=== PATIENT | female | born 2005 | race Caucasian/White ===

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

== ENCOUNTER 2025-04-14 21:45 | Emergency (ER) | payer MEDICAID, SELFPAY ==
[2025-04-14 21:46] VITALS: BP 140/71; PULSE 119; RESP 18; TEMP 37.3; O2SAT 97
--- OUTSIDE RECORDS SUMMARY | 2025-04-14 21:47 | XMS_ITS | Data Portability ---
Author Organization [facility] Address [address] [place] [address] Care Team Providers Care [employer] Worker Name Role Phone ISLAS OLIVE Primary Care Provider [phone] Assessment Encounter Date Assessment Date Assessment LastModified by Organization Details LastModified Time 02/27/2024 02/27/2024 see ob episode [email or web address] Not available 02/27/2024 12:11:50 Plan of Treatment Reminders Order Date Submit Date Provider Last Modified By Organization Details Last Modified Time Details Appointments None recorde d. Lab culture , urine 2023 024 [facility], [address] [place] [address], [place], [address], 4 07:16:38 chlamyd ia trachom atis + neisser ia gonorrh oeae + trichom onas vaginal is DNA panel, CAROL+pro be, unspeci fied specime n 2023 024 JENNIE [facility], [address] [place] [address] 2, [place], [address], 4 07:16:24 mycopla sma genital ium DNA, QL, CAROL+pro be, urine 2023 024 JENNIE [facility], [address] [place] [address], [facility] 2, [place], [address], 4 16:12:39 urinaly sis, dipstic k 2023 024 [email or web address] In-Office Order, Internal Use Only DO Not Attach Compendium DO Not Attach Compendium, Do Not Delete/merge, [id number] 4 17:05:10 pregnan cy test, urine 2023 024 [facility] In-Office Order, Internal Use Only DO Not Attach Compendium DO Not Attach Compendium, Do Not Delete/merge, [id number] 4 09:34:19 prenata l panel 2023 024 JENNIE [facility], [address], [place], [address], 4 16:12:30 drug screen, urine 2023 024 JENNIE [facility], [address], [place], [address], 4 16:12:35 hemoglo bin S (hbs), presenc e, blood 2023 024 JENNIE [facility], [address], [place], [address], 4 16:12:36 varicel la zoster virus IgG Ab, QN, IA, serum 2023 024 JENNIE [facility], [address], [place], [address], 4 16:12:38 trichom onas vaginal is RNA 2023 024 JENNIE [facility], [address], [place], [address], 4 16:12:34 hsv (1+2) igg, serum 2023 024 JENNIE [facility], [address], [place], [address], 4 16:12:31 mycopla sma genital ium DNA, QL, CAROL+pro be, urine 2023 024 JENNIE [facility], [address] [facility], [facility] 2, [place], [address], 4 16:12:33 urinaly sis, dipstic k 2023 024 [facility] Order, Internal Use Only DO Not Attach Compendium DO Not Attach Compendium, Do Not Delete/merge, [id number] 4 09:34:19 iron + total iron-bi nding capacit y (TIBC), serum 2022 023 JENNIE [facility], [address] [facility] 2, [place], [address], 3 08:27:26 vitamin B12 + folate, serum or blood 2022 023 JENNIE [facility], [address] [place] [address] 2, [place], [address], 3 08:27:25 ferriti n, serum or plasma 2022 023 JENNIE [facility], [address] [facility], [facility] 2, [place], [address], 3 08:27:27 PT/PTT, plasma 2022 023 JENNIE [facility], [address] [facility] 2, [place], [address], 3 08:27:27 vitamin D, 25-hydr oxy, total, serum 2022 023 JENNIE [facility], [address] [place] [address] 2, [place], [address], 3 08:27:28 TSH, ultra-s ensitiv e, serum 2022 023 JENNIE [facility], [address], [place], [address], 3 08:27:24 CMP, serum or plasma 2022 023 JENNIE [facility], [address], [place], [address], 3 03:08:12 lipid panel, serum 2022 023 JENNIE [facility], [address], [place], [address], 3 03:08:11 CBC 2022 023 JENNIE [facility], [address], [place], [address], 3 03:08:12 Referral None recorde d. Procedures None recorde d. Surgeries None recorde d. Imaging US, obstetr ic, materna l evaluat ion + anatomy 2023 024 [email or web address] [facility] Lab, [address] [place], [address], 4 12:32:55 US, obstetr ic, 2nd trimest er 2023 024 JENNIE [facility] Lab, [address] [place], [address], 4 12:29:58 XR, knee, 3 view 2022 023 JENNIE [facility] 1 [facility] [place], [address], 3 17:18:23 XR, knee, 3 view 2022 023 [facility] ([facility] Lab, [address] [place], [address], 3 13:47:09 Medication Orders ondanse berry 4 mg disinte grating tablet 2023 024 JENNIE [facility] [id number], [address], 4 10:37:08 albuter ol sulfate HFA 90 mcg/act uation aerosol inhaler 2022 023 [email or web address] [facility] [address], [address], 4 09:16:49 Sprinte c (28) 0.25 mg-0.03 5 mg tablet 2021 022 [facility] [id number], [address], 4 09:16:34 Patient TargetsNo targets recorded. Patient Instructions Encounter Date Encounter Id Patient Instructions Last Modified By Organization Details Last Modified Time 01/19/2023 [id number] Learning About How to Make Healthy Changes in Your Child's Diet avallala Not available 01/19/2023 12:25:32 Considering More Physical Activity for Your Child avallala Not available 01/19/2023 12:25:32 08/14/2023 [id number] influenza (flu) vaccine: care instructions Not available [...] with provider Not available 08/14/2023 10:45:36 02/27/2024 [id number] learning about mood disorders [email or web address] Not available 02/27/2024 12:11:50 04/02/2024 [id number] extreme nausea and vomiting in : care instructions [email or web address] Not available 04/03/2024 10:37:03 Reason for Referral None Reported. Results Created Date Observation Date Name Description Value Unit Range Abnormal Flag Note LastModifiedBy Organization Detail LastModifiedTime 08/14/2008/14/2023 LIPID PANEL cholesterol, total 273 mg/dL 100-16 9 above high normal Not Available [facility] Department [address] [place], [address], 08/15/2023 03:08:11 08/14/2008/14/2023 LIPID PANEL triglyceride s 99 mg/dL 0-89 above high normal Not Available [facility] Department [address] [place], [address], 08/15/2023 03:08:11 08/14/2008/14/2023 LIPID PANEL HDL cholesterol 83 mg/dL 40-999 Not Available [facility] Department [address] [place], [address], 08/15/2023 03:08:11 08/14/2008/14/2023 LIPID PANEL VLDL cholesterol don 20 mg/dL 5-40 Not Available [facility] Department [address] [place], [address], 08/15/2023 03:08:11 08/14/2008/14/2023 LIPID PANEL LDL chol calc ([facility]) 185 mg/dL 0-109 above high normal Not Available [facility] Department [address] [place], [address], 08/15/2023 03:08:11 08/14/2008/14/2023 COMP. METAB OLIC PANEL (14) glucose 79 mg/dL 70-99 Not Available [facility] Department [address] [place], [address], 08/15/2023 03:08:12 08/14/20 23 08/14/2023 COMP. METAB OLIC PANEL (14) BUN 11 mg/dL 6-20 Not Available [facility] Department [address] [place], [address], 08/15/2023 03:08:12 08/14/20 23 08/14/2023 COMP. METAB OLIC PANEL (14) creatinine 0.70 mg/dL 0.76-1 .27 below low normal Not Available [facility] Department [address] [place], [address], 08/15/2023 03:08:12 08/14/20 23 08/14/2023 COMP. METAB OLIC PANEL (14) eGFR 128 >=60 Units for eGFR value s are mL/mi n/1.7 3 The eGFR Calcu latio n has not been valid ated for patie nts under the age of 18. If test resul ts are displ ayed for a patie nt under the age of 18, disre samuel that value . Not Available [facility] Department [address] [place], [address], 08/15/2023 03:08:12 08/14/20 23 08/14/2023 COMP. METAB OLIC PANEL (14) BUN/creatini ne ratio 16 9-23 Not Available [facility] Department [address] [place], [address], 08/15/2023 03:08:12 08/14/20 23 08/14/2023 COMP. METAB OLIC PANEL (14) sodium 137 mmol/ L 134-14 4 Not Available [facility] Department [address] [place], [address], 08/15/2023 03:08:12 08/14/20 23 08/14/2023 COMP. METAB OLIC PANEL (14) potassium 4.6 mmol/ L 3.5-5. 2 Not Available [facility] Department [address] [place], [address], 08/15/2023 03:08:12 08/14/20 23 08/14/2023 COMP. METAB OLIC PANEL (14) chloride 101 mmol/ L 96-106 Not Available [facility] Department [address] [place], [address], 08/15/2023 03:08:12 08/14/20 23 08/14/2023 COMP. METAB OLIC PANEL (14) carbon dioxide, total 24 mmol/ L 20-29 Not Available [facility] Department [address] [place] [address], [address], 08/15/2023 03:08:12 08/14/20 23 08/14/2023 COMP. METAB OLIC PANEL (14) calcium 10.1 mg/dL 8.7-10 .2 Not Available [facility] Department [address] [place] [address], [address], 08/15/2023 03:08:12 08/14/20 23 08/14/2023 COMP. METAB OLIC PANEL (14) protein, total 7.6 g/dL 6.0-8. 5 Not Available [facility] Department [address] [place], [address], 08/15/2023 03:08:12 08/14/20 23 08/14/2023 COMP. METAB OLIC PANEL (14) albumin 4.4 g/dL 4.0-5. 0 Not Available [facility] Department [address] [place], [address], 08/15/2023 03:08:12 08/14/20 23 08/14/2023 COMP. METAB OLIC PANEL (14) globulin, total 3.2 g/dL 1.5-4. 5 Not Available [facility] Department [address] [place], [address], 08/15/2023 03:08:12 08/14/20 23 08/14/2023 COMP. METAB OLIC PANEL (14) A/G ratio 1.0 1.2-2. 2 below low normal Not Available [facility] Department [address] [place], [address], 08/15/2023 03:08:12 08/14/20 23 08/14/2023 COMP. METAB OLIC PANEL (14) bilirubin, total 0.2 mg/dL 0.0-1. 2 Not Available [facility] Department [address] [place], [address], 08/15/2023 03:08:12 08/14/20 23 08/14/2023 COMP. METAB OLIC PANEL (14) alkaline phosphatase 109 IU/L 42-106 above high normal Not Available [facility] Department [address] [place], [address], 08/15/2023 03:08:12 08/14/20 23 08/14/2023 COMP. METAB OLIC PANEL (14) AST (SGOT) 15 IU/L 0-40 Not Available [facility] Department [address] [place] [address], [address], 08/15/2023 03:08:12 08/14/2008/14/2023 COMP. METAB OLIC PANEL (14) ALT (SGPT) 10 IU/L 0-32 Not Available [facility] Department [address] [place] [address], [address], 08/15/2023 03:08:12 08/14/20 23 08/14/2023 CBC, NO DIFFE RENTI AL/PL ATELE T WBC 8.8 x10e3 /uL 3.4-10 .8 Not Available [facility] Department [address] [place], [address], 08/15/2023 03:08:12 08/14/20 23 08/14/2023 CBC, NO DIFFE RENTI AL/PL ATELE T RBC 4.73 x10e6 /uL 3.77-5 .28 Not Available [facility] Department [address] [place] [address], [address], 08/15/2023 03:08:12 08/14/20 23 08/14/2023 CBC, NO DIFFE RENTI AL/PL ATELE T hemoglobin 11.2 g/dL 11.1-1 5.9 Not Available [facility] Department [address] [place], [address], 08/15/2023 03:08:12 08/14/2008/14/2023 CBC, NO DIFFE RENTI AL/PL ATELE T hematocrit 38.4 % 34.0-4 6.6 Not Available [facility] Department [address] [place], [address], 08/15/2023 03:08:12 08/14/2008/14/2023 CBC, NO DIFFE RENTI AL/PL ATELE T MCV 81 fL 79-97 Not Available [facility] Department [address] [place], [address], 08/15/2023 03:08:12 08/14/2008/14/2023 CBC, NO DIFFE RENTI AL/PL ATELE T MCH 23.7 pg 26.6-3 3.0 below low normal Not Available [facility] Department [address] [place], [address], 08/15/2023 03:08:12 08/14/2008/14/2023 CBC, NO DIFFE RENTI AL/PL ATELE T MCHC 29.2 g/dL 31.5-3 5.7 below low normal Not Available [facility] Department [address] [place], [address], 08/15/2023 03:08:12 08/14/20 23 08/14/2023 CBC, NO DIFFE RENTI AL/PL ATELE T RDW 15.7 % 11.5-1 4.5 above high normal Not Available [facility] Department [address] [place], [address], 08/15/2023 03:08:12 08/14/20 23 08/14/2023 CBC, NO DIFFE RENTI AL/PL ATELE T NRBC 0 % 0-0 Not Available [facility] Department [address], [place], [address], 08/15/2023 03:08:12 08/14/20 23 08/15/2023 TSH RFX ON ABNOR MAL TO FREE T4 TSH 1.290 uIU/m L 0.450- 4.500 Not Available [facility] ([facility]) [address] [place], [address], 08/15/2023 08:27:24 08/14/20 23 08/15/2023 VITAM IN B12 AND FOLAT E vitamin B12 293 pg/mL 232-12 45 Not Available [facility] ([facility]) [address] [place], [address], 08/15/2023 08:27:25 08/14/20 23 08/15/2023 VITAM IN B12 AND FOLAT E folate (folic acid), serum 3.9 NG/mL >3.0 A serum folat e eduardo ntrat ion of less than 3.1 ng/mL is consi dered to repre sent clini don defic iency . Not Available [facility] ([facility]) [address] [place], [address], 08/15/2023 08:27:25 08/14/20 23 08/15/2023 IRON AND TIBC iron bind.cap.(TI BC) 511 ug/dL 250-45 0 above high normal Not Available [facility] ([facility]) [address] [place], [address], 08/15/2023 08:27:26 08/14/20 23 08/15/2023 IRON AND TIBC UIBC 466 ug/dL 131-42 5 above high normal Not Available [facility] ([facility]) [address] [place], [address], 08/15/2023 08:27:26 08/14/20 23 08/15/2023 IRON AND TIBC iron 45 ug/dL 27-159 Not Available [facility] ([facility]) [address] [place], [address], 08/15/2023 08:27:26 08/14/20 23 08/15/2023 IRON AND TIBC iron saturation 9 % 15-55 alert low Not Available [facility] ([facility]) [address] [place], [address], 08/15/2023 08:27:26 08/14/20 23 08/15/2023 DENNIS TIN ferritin 8 NG/mL 15-77 below low normal Not Available [facility] ([facility]) [address] [place], [address], 08/15/2023 08:27:27 08/14/20 23 08/15/2023 PT AND [...] range 2.5 - 3.5 Not Available [facility] ([facility]) [address] [facility], [place], [address], 08/15/2023 08:27:27 08/14/20 23 08/15/2023 PT AND PTT prothrombin time 10.3 sec 9.1-12 .0 Not Available [facility] ([facility]) [address] [place], [address], 08/15/2023 08:27:27 08/14/20 23 08/15/2023 PT AND PTT APTT 29 sec 24-33 This test has not been valid ated for monit oring unfra ction ated hepar in thera py. aPTT- based thera peuti c range s for unfra ction ated hepar in thera py have not been estab maria eugenia marie. For gener al guide lines on Hepar in monit oring , refer to the [facility] [employer] tory of Servi reyes. Not Available [facility] ([facility]) [address], [place], [address], 08/15/2023 08:27:27 08/14/20 23 08/15/2023 VITAM IN [...] Medic ine). 2009. Dieta ry refer ence intyahir es for calci um and D. Josi francis [place]: [facility] . 2. Jacinda brooke [place], Marge ey [place], [place] off-F errar i [place], et al. Evalu ation , treat ment, and preve ntion of vitam in D defic iency : an Endoc rine Socie ty clini don pract ice guide line. JCEM. 2010; 96(7) :1911 -30. Not Available [facility] ([facility]) [address], [place], [address], 08/15/2023 08:27:28 02/27/20 24 02/28/2024 INTER PRETA TION: interpretati on: Commen t Not infec delia with HCV unles s early or acute infec tion is suspe cted (whic h may be delay ed in an immun ocomp romis ed indiv idual ), or other evide nce exist s to indic ate HCV infec tion. Not Available [facility] ([facility]) [address] [facility], [place], [address], 03/05/2024 16:12:29 02/27/20 24 02/28/2024 PREGN JO, INITI AL SCREE N HBsAg screen NEGATI VE negati ve Not Available [facility] ([facility]) [address] [facility], [place], [address], 03/05/2024 16:12:30 02/27/20 24 02/28/2024 PREGN JO, INITI AL SCREE N HCV Ab NON REACTI VE nonrea ctive Not Available [facility] ([facility]) [address] [facility], [place], [address], 03/05/2024 16:12:30 02/27/20 24 02/28/2024 PREGN JO, INITI AL SCREE N RPR NON REACTI VE nonrea ctive Not Available [facility] ([facility]) [address] [facility], [place], [address], 03/05/2024 16:12:30 02/27/20 24 02/28/2024 PREGN JO, INITI AL SCREE N rubella antibodies, IgG <0.90 index immune >0.99 below low normal Non-i mmune <0.90 Equiv ocal 0.90 - 0.99 Immun e >0.99 Not Available [facility] ([facility]) [address] [facility], [place], [address], 03/05/2024 16:12:30 02/27/20 24 02/28/2024 PREGN JO, INITI AL SCREE N ABO grouping O Not Available [facility] ([facility]) [address] [facility], [place], [address], 03/05/2024 16:12:30 02/27/20 24 02/28/2024 PREGN JO, INITI AL SCREE N Rh factor NEGATI VE Pleas e note: Prior recor ds for this patie nt's ABO / Rh type are not avail able for addit ional verif icati on. Not Available [facility] ([facility]) [address] [facility], [place], [address], 03/05/2024 16:12:30 02/27/20 24 02/28/2024 PREGN JO, INITI AL SCREE N antibody screen NEGATI VE negati ve Not Available [facility] ([facility]) [address] [facility], [place], [address], 03/05/2024 16:12:30 02/27/20 24 02/28/2024 PREGN JO, INITI AL SCREE N HIV Ab/P24 Ag screen NON REACTI VE nonrea ctive HIV Negat robert HIV-1 /HIV- 2 antib odies and HIV-1 p24 antig en were NOT detec delia. There is no labor atory evide nce of HIV infec tion. Not Available [facility] ([facility]) [address] [facility], [place], [address], 03/05/2024 16:12:30 02/27/20 24 02/28/2024 PREGN JO, INITI AL SCREE N WBC 8.4 x10e3 /uL 3.4-10 .8 Not Available [facility] ([facility]) [address] [facility], [place], [address], 03/05/2024 16:12:30 02/27/20 24 02/28/2024 PREGN JO, INITI AL SCREE N RBC 4.29 x10e6 /uL 3.77-5 .28 Not Available [facility] ([facility]) [address] [place], [address], 03/05/2024 16:12:30 02/27/20 24 02/28/2024 PREGN JO, INITI AL SCREE N hemoglobin 10.3 g/dL 11.1-1 5.9 below low normal Not Available [facility] ([facility]) [address] [place], [address], 03/05/2024 16:12:30 02/27/20 24 02/28/2024 PREGN JO, INITI AL SCREE N hematocrit 32.6 % 34.0-4 6.6 below low normal Not Available [facility] ([facility]) [address] [place], [address], 03/05/2024 16:12:30 02/27/20 24 02/28/2024 PREGN JO, INITI AL SCREE N MCV 76 fL 79-97 below low normal Not Available [facility] ([facility]) [address] [place], [address], 03/05/2024 16:12:30 02/27/20 24 02/28/2024 PREGN OJ, INITI AL SCREE N MCH 24.0 pg 26.6-3 3.0 below low normal Not Available [facility] ([facility]) [address] [place], [address], 03/05/2024 16:12:30 02/27/20 24 02/28/2024 PREGN JO, INITI AL SCREE N MCHC 31.6 g/dL 31.5-3 5.7 Not Available [facility] ([facility]) [address] [place], [address], 03/05/2024 16:12:30 02/27/20 24 02/28/2024 PREGN JO, INITI AL SCREE N RDW 15.7 % 11.7-1 5.4 above high normal Not Available [facility] ([facility]) [address] [place], [address], 03/05/2024 16:12:30 02/27/20 24 02/28/2024 PREGN JO, INITI AL SCREE N platelets 357 x10e3 /uL 150-45 0 Not Available [facility] ([facility]) [address] [facility] [place], [address], 03/05/2024 16:12:30 02/27/20 24 02/28/2024 PREGN JO, INITI AL SCREE N neutrophils 67 % notest ab. Not Available [facility] ([facility]) [address] [facility], [place], [address], 03/05/2024 16:12:30 02/27/20 24 02/28/2024 PREGN JO, INITI AL SCREE N lymphs 22 % notest ab. Not Available [facility] ([facility]) [address] [facility], [place], [address], 03/05/2024 16:12:30 02/27/20 24 02/28/2024 PREGN JO, INITI AL SCREE N monocytes 10 % notest ab. Not Available [facility] ([facility]) [address] [facility], [place], [address], 03/05/2024 16:12:30 02/27/20 24 02/28/2024 PREGN JO, INITI AL SCREE N eos 1 % notest ab. Not Available [facility] ([facility]) [address] [facility], [place], [address], 03/05/2024 16:12:30 02/27/20 24 02/28/2024 PREGN JO, INITI AL SCREE N basos 0 % notest ab. Not Available [facility] ([facility]) [address] [facility], [place], [address], 03/05/2024 16:12:30 02/27/20 24 02/28/2024 PREGN JO, INITI AL SCREE N neutrophils (absolute) 5.6 x10e3 /uL 1.4-7. 0 Not Available [facility] ([facility]) [address] [facility], [place], [address], 03/05/2024 16:12:30 02/27/20 24 02/28/2024 PREGN JO, INITI AL SCREE N lymphs (absolute) 1.9 x10e3 /uL 0.7-3. 1 Not Available [facility] ([facility]) [address] [place], [address], 03/05/2024 16:12:30 02/27/20 24 02/28/2024 PREGN JO, INITI AL SCREE N monocytes(ab solute) 0.8 x10e3 /uL 0.1-0. 9 Not Available [facility] ([facility]) [address] [facility], [place], [address], 03/05/2024 16:12:30 02/27/20 24 02/28/2024 PREGN JO, INITI AL SCREE N eos (absolute) 0.1 x10e3 /uL 0.0-0. 4 Not Available [facility] ([facility]) [address] [place], [address], 03/05/2024 16:12:30 02/27/20 24 02/28/2024 PREGN JO, INITI AL SCREE N baso (absolute) 0.0 x10e3 /uL 0.0-0. 2 Not Available [facility] ([facility]) [address] [facility], [place], [address], 03/05/2024 16:12:30 02/27/20 24 02/28/2024 PREGN JO, INITI AL SCREE N immature granulocytes 0 % notest ab. Not Available [facility] ([facility]) [address] [place], [address], 03/05/2024 16:12:30 02/27/20 24 02/28/2024 PREGN JO, INITI AL SCREE N immature grans (abs) 0.0 x10e3 /uL 0.0-0. 1 Not Available [facility] ([facility]) [address] [place], [address], 03/05/2024 16:12:30 02/27/20 24 02/28/2024 PREGN JO, INITI AL SCREE N specific gravity 1.020 1.005- 1.030 Not Available [facility] ([facility]) [address] [place], [address], 03/05/2024 16:12:30 02/27/20 24 02/28/2024 PREGN JO, INITI AL SCREE N pH 5.5 5.0-7. 5 Not Available [facility] ([facility]) [address] [place], [address], 03/05/2024 16:12:30 02/27/20 24 02/28/2024 PREGN JO, INITI AL SCREE N urine-color YELLOW yellow Not Available [facility] ([facility]) [address] [place], [address], 03/05/2024 16:12:30 02/27/20 24 02/28/2024 PREGN JO, INITI AL SCREE N appearance CLOUDY clear abnormal Not Available [facility] ([facility]) [address] [place], [address], 03/05/2024 16:12:30 02/27/20 24 02/28/2024 PREGN JO, INITI AL SCREE N WBC esterase 3+ negati ve abnormal Not Available [facility] ([facility]) [address] [place], [address], 03/05/2024 16:12:30 02/27/20 24 02/28/2024 PREGN JO, INITI AL SCREE N protein NEGATI VE negati ve/tra ce Not Available [facility] ([facility]) [address] [place], [address], 03/05/2024 16:12:30 02/27/20 24 02/28/2024 PREGN JO, INITI AL SCREE N glucose NEGATI VE negati ve Not Available [facility] ([facility]) [address] [place], [address], 03/05/2024 16:12:30 02/27/20 24 02/28/2024 PREGN JO, INITI AL SCREE N ketones NEGATI VE negati ve Not Available [facility] ([facility]) [address] [place], [address], 03/05/2024 16:12:30 02/27/20 24 02/28/2024 PREGN JO, INITI AL SCREE N occult blood TRACE negati ve abnormal Not Available [facility] ([facility]) [address] [place], [address], 03/05/2024 16:12:30 02/27/20 24 02/28/2024 PREGN JO, INITI AL SCREE N bilirubin NEGATI VE negati ve Not Available [facility] ([facility]) [address] [place], [address], 03/05/2024 16:12:30 02/27/20 24 02/28/2024 PREGN JO, INITI AL SCREE N urobilinogen ,semi-qn 0.2 mg/dL 0.2-1. 0 Not Available [facility] ([facility]) [address] [place], [address], 03/05/2024 16:12:30 02/27/20 24 02/28/2024 PREGN JO, INITI AL SCREE N nitrite, urine NEGATI VE negati ve Not Available [facility] ([facility]) [address] [place], [address], 03/05/2024 16:12:30 02/27/20 24 02/28/2024 PREGN JO, INITI AL SCREE N microscopic examination SEE BELOW: Micro scopi c was indic ated and was perfo rmed. Not Available [facility] ([facility]) [address] [place], [address], 03/05/2024 16:12:30 02/27/20 24 02/29/2024 PREGN JO, INITI AL SCREE N urine culture,pren atal, w/gbs FINAL REPORT Not Available [facility] ([facility]) [address] [facility], [place], [address], 03/05/2024 16:12:30 02/27/20 24 03/05/2024 PREGN JO, INITI AL SCREE N chlamydia trachomatis, CAROL POSITI VE negati ve abnormal Not Available [facility] ([facility]) [address] [facility], [place], [address], 03/05/2024 16:12:30 02/27/20 24 03/05/2024 PREGN JO, INITI AL SCREE N neisseria gonorrhoeae, CAROL NEGATI VE negati ve Not Available [facility] ([facility]) [address] [facility], [place], [address], 03/05/2024 16:12:30 02/27/20 24 02/28/2024 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 Not Available [facility] ([facility]) [address] [facility], [place], [address], 03/05/2024 16:12:31 02/27/20 24 02/28/2024 HSV 1 [...] beny corre lated . Not Available [facility] ([facility]) [address] [place], [address], 03/05/2024 16:12:31 02/27/20 24 03/05/2024 M GENIT ALIUM CAROL, URINE mycoplasma genitalium CAROL POSITI VE negati ve abnormal Not Available [facility] ([facility]) [address] [place], [address], 03/05/2024 16:12:32 02/27/20 24 03/03/2024 TRICH VAG BY CAROL trich vag by CAROL NEGATI VE negati ve Not Available [facility] ([facility]) [address] [place], [address], 03/05/2024 16:12:33 02/27/20 24 02/28/2024 MICRO SCOPI C EXAMI NATIO N WBC 11-30 /hpf 0-5 abnormal Not Available [facility] ([facility]) [address] [place], [address], 03/05/2024 16:12:35 02/27/20 24 02/28/2024 MICRO SCOPI C EXAMI NATIO N RBC None seen /hpf 0-2 Not Available [facility] ([facility]) [address] [facility], [place], [address], 03/05/2024 16:12:35 02/27/20 24 02/28/2024 MICRO SCOPI C EXAMI NATIO N epithelial cells (non renal) >10 /hpf 0-10 abnormal Not Available [facility] ([facility]) [address] [facility], [place], [address], 03/05/2024 16:12:35 02/27/20 24 02/28/2024 MICRO SCOPI C EXAMI NATIO N casts None seen /lpf nonese en Not Available [facility] ([facility]) [address] [facility], [place], [address], 03/05/2024 16:12:35 02/27/20 24 02/28/2024 MICRO SCOPI C EXAMI NATIO N bacteria Modera te nonese en/few abnormal Not Available [facility] ([facility]) [address] [facility], [place], [address], 03/05/2024 16:12:35 02/27/20 24 02/29/2024 [id number] 9 10 DRUG- BUND amphetamines , urine NEGATI VE NG/mL cutoff =1000 Amphe tamin e test inclu mary jane Amphe tamin e and Metha mphet amine . Not Available [facility] ([facility]) [address] [facility], [place], [address], 03/05/2024 16:12:35 02/27/20 24 02/29/2024 48295 9 10 DRUG- BUND barbiturates NEGATI VE NG/mL cutoff =200 Not Available [facility] ([facility]) [address] [facility], [place], [address], 03/05/2024 16:12:35 02/27/20 24 02/29/2024 64009 9 10 DRUG- BUND benzodiazepi mathew NEGATI VE NG/mL cutoff =200 Not Available [facility] ([facility]) [address] [place], [address], 03/05/2024 16:12:35 02/27/20 24 02/29/2024 35400 9 10 DRUG- BUND cannabinoid NEGATI VE NG/mL cutoff =50 Not Available [facility] ([facility]) [address] [place], [address], 03/05/2024 16:12:35 02/27/20 24 02/29/2024 10114 9 10 DRUG- BUND cocaine (metab.) NEGATI VE NG/mL cutoff =300 Not Available [facility] ([facility]) [address] [facility], [place], [address], 03/05/2024 16:12:35 02/27/20 24 02/29/2024 [id number] 9 10 DRUG- BUND methaqualone NEGATI VE NG/mL cutoff =300 Not Available [facility] ([facility]) [address] [place], [address], 03/05/2024 16:12:35 02/27/20 24 02/29/2024 55616 9 10 DRUG- BUND opiates NEGATI VE NG/mL cutoff =2000 Opiat e test inclu mary jane Codei ne and Morph ine only. Not Available [facility] ([facility]) [address] [place], [address], 03/05/2024 16:12:35 02/27/20 24 02/29/2024 09302 9 10 DRUG- BUND phencyclidin e NEGATI VE NG/mL cutoff =25 Not Available [facility] ([facility]) [address] [place], [address], 03/05/2024 16:12:35 02/27/20 24 02/29/2024 48747 9 10 DRUG- BUND methadone screen, urine NEGATI VE NG/mL cutoff =300 Not Available [facility] ([facility]) [address] [place], [address], 03/05/2024 16:12:35 02/27/20 24 02/29/2024 57446 9 10 DRUG- BUND propoxyphene , urine NEGATI VE NG/mL cutoff =300 Not Available [facility] ([facility]) [address] [place], [address], 03/05/2024 16:12:35 02/27/20 24 02/28/2024 HB SOLU + RFLX FRAC hemoglobin (HGB) solubility NEGATI VE negati ve Not Available [facility] ([facility]) [address] [facility], [place], [address], 03/05/2024 16:12:36 02/27/20 24 02/29/2024 RESUL T result 1 Commen t Mixed uroge nital mer Great er than 100,0 00 colon y formi ng units per mL Not Available [facility] ([facility]) [address] [facility], [place], [address], 03/05/2024 16:12:37 02/27/20 24 02/28/2024 VARIC GLORY- [...] stage of disea se. Not Available [facility] ([facility]) [address] [facility], [place], [address], 03/05/2024 16:12:38 02/27/20 24 02/27/2024 urina lysis , dipst ick Leukocytes Large Not Available In-Offi ce Order Internal Use Only DO Not Attach Compendium DO Not Attach Compendium, Do Not Delete/merge, Critical [facility] hospital 02/27/2024 09:19:07 02/27/20 24 02/27/2024 urina lysis , dipst ick Nitrite negati ve Not Available In-Office Order Internal Use Only DO Not Attach Compendium DO Not Attach Compendium, Do Not Delete/merge, Critical [facility] hospital 02/27/2024 09:19:07 02/27/20 24 02/27/2024 urina lysis , dipst ick Urobilinogen .2 Not Available In-Of fice Order Internal Use Only DO Not Attach Compendium DO Not Attach Compendium, Do Not Delete/merge, Critical [facility] hospital 02/27/2024 09:19:07 02/27/20 24 02/27/2024 urina lysis , dipst ick Protein Negati ve Not Available In-Office Order Internal Use Only DO Not Attach Compendium DO Not Attach Compendium, Do Not Delete/merge, Critical [facility] hospital 02/27/2024 09:19:07 02/27/20 24 02/27/2024 urina lysis , dipst ick pH 5.5 Not Available In-Office Order Internal Use Only DO Not Attach Compendium DO Not Attach Compendium, Do Not Delete/merge, Critical [facility] hospital 02/27/2024 09:19:07 02/27/20 24 02/27/2024 urina lysis , dipst ick Blood Non-He molyze d: Trace Not Available In-Office Order Internal Use Only DO Not Attach Compendium DO Not Attach Compendium, Do Not Delete/merge, Critical [facility] hospital 02/27/2024 09:19:07 02/27/20 24 02/27/2024 urina lysis , dipst ick Specific Spencer 1.025 Not Available In-Off ice Order Internal Use Only DO Not Attach Compendium DO Not Attach Compendium, Do Not Delete/merge, [id number] 02/27/2024 09:19:07 02/27/20 24 02/27/2024 urina lysis , dipst ick Ketone Negati ve Not Available In-Office Order Internal Use Only DO Not Attach Compendium DO Not Attach Compendium, Do Not Delete/merge, Critical [facility] hospital 02/27/2024 09:19:07 02/27/20 24 02/27/2024 urina lysis , dipst ick Bilirubin Negati ve Not Available In-Office Order Internal Use Only DO Not Attach Compendium DO Not Attach Compendium, Do Not Delete/merge, Critical [facility] hospital 02/27/2024 09:19:07 02/27/20 24 02/27/2024 urina lysis , dipst ick Glucose Negati ve Not Available In-Office Order Internal Use Only DO Not Attach Compendium DO Not Attach Compendium, Do Not Delete/merge, Critical [facility] hospital 02/27/2024 09:19:07 02/27/20 24 02/27/2024 urina lysis , dipst ick Appearance Clear Not Available In-Offi ce Order Internal Use Only DO Not Attach Compendium DO Not Attach Compendium, Do Not Delete/merge, Critical [facility] hospital 02/27/2024 09:19:07 02/27/20 24 02/27/2024 urina lysis , dipst ick Color Yellow Not Available In-Office Order Internal Use Only DO Not Attach Compendium DO Not Attach Compendium, Do Not Delete/merge, Critical [facility] hospital 02/27/2024 09:19:07 02/27/20 24 02/27/2024 pregn jo test, urine HCG positi ve Not Available In-Office Order Internal Use Only DO Not Attach Compendium DO Not Attach Compendium, Do Not Delete/merge, Critical access hospital 02/27/2024 09:18:25 04/02/20 24 04/04/2024 CT, NG, TRICH VAG BY CAROL chlamydia by CAROL NEGATI VE negati ve Not Available [facility] ([facility]) [address] [place], [address], 04/04/2024 07:16:24 04/02/20 24 04/04/2024 CT, NG, TRICH VAG BY CAROL gonococcus by CAROL NEGATI VE negati ve Not Available [facility] ([facility]) [address] [place], [address], 04/04/2024 07:16:24 04/02/20 24 04/04/2024 CT, NG, TRICH VAG BY CAROL trich vag by CAROL NEGATI VE negati ve Not Available [facility] ([facility]) [address] [facility], [place], [address], 04/04/2024 07:16:24 04/02/20 24 04/04/2024 URINE CULTU RE, ROUTI NE urine culture, routine FINAL REPORT Not Available [facility] ([facility]) [address] [facility], [place], [address], 04/04/2024 07:16:38 04/02/20 24 04/04/2024 URINE CULTU RE, ROUTI NE result 1 COMMEN T Mixed uroge nital mer 25,00 0-50, 000 colon y formi ng units per mL Not Available [facility] ([facility]) [address] [facility], [place], [address], 04/04/2024 07:16:38 04/02/20 24 04/05/2024 M GENIT ALIUM CAROL, URINE mycoplasma genitalium CAROL POSITI VE negati ve abnormal Not Available [facility] ([facility]) [address] [facility], [place], [address], 04/05/2024 16:12:38 04/02/20 24 04/02/2024 urina lysis , dipst ick Leukocytes Modera te Not Available In-Office Order Internal Use Only DO Not Attach Compendium DO Not Attach Compendium, Do Not Delete/merge, [id number] 04/01/2024 15:13:13 04/02/20 24 04/02/2024 urina lysis , dipst ick Nitrite negati ve Not Available In-Office Order Internal Use Only DO Not Attach Compendium DO Not Attach Compendium, Do Not Delete/merge, [id number] 04/01/2024 15:13:13 04/02/20 24 04/02/2024 urina lysis , dipst ick Urobilinogen .2 Not Available In-Of fice Order Internal Use Only DO Not Attach Compendium DO Not Attach Compendium, Do Not Delete/merge, [id number] 04/01/2024 15:13:13 04/02/20 24 04/02/2024 urina lysis , dipst ick Protein 30 Not Available In-Office Order Internal Use Only DO Not Attach Compendium DO Not Attach Compendium, Do Not Delete/merge, [id number] 04/01/2024 15:13:13 04/02/2004/02/2024 urina lysis , dipst ick pH 8.5 Not Available In-Office Order Internal Use Only DO Not Attach Compendium DO Not Attach Compendium, Do Not Delete/merge, Critical [facility] hospital 04/01/2024 15:13:13 04/02/20 24 04/02/2024 urina lysis , dipst ick Blood Negati ve Not Available In-Office Order Internal Use Only DO Not Attach Compendium DO Not Attach Compendium, Do Not Delete/merge, Critical access hospital 04/01/2024 15:13:13 04/02/20 24 04/02/2024 urina lysis , dipst ick Specific Spencer 1.015 Not Available In-Off ice Order Internal Use Only DO Not Attach Compendium DO Not Attach Compendium, Do Not Delete/merge, Critical [facility] hospital 04/01/2024 15:13:13 04/02/20 24 04/02/2024 urina lysis , dipst ick Ketone Negati ve Not Available In-Office Order Internal Use Only DO Not Attach Compendium DO Not Attach Compendium, Do Not Delete/merge, Critical [facility] hospital 04/01/2024 15:13:13 04/02/2004/02/2024 urina lysis , dipst ick Bilirubin Negati ve Not Available In-Office Order Internal Use Only DO Not Attach Compendium DO Not Attach Compendium, Do Not Delete/merge, Critical [facility] hospital 04/01/2024 15:13:13 04/02/20 24 04/02/2024 urina lysis , dipst ick Glucose Negati ve Not Available In-Office Order Internal Use Only DO Not Attach Compendium DO Not Attach Compendium, Do Not Delete/merge, Critical access hospital 04/01/2024 15:13:13 04/09/20 24 04/14/2024 MATER NIT21 PLUS CORE gestation SINGLE TON Not Available [facility] ([facility]) [address] [facility], [place], [address], 04/14/2024 07:08:18 04/09/20 24 04/14/2024 MATER NIT21 PLUS CORE fraction 7% Not Available [facility] ([facility]) [address] [place], [address], 04/14/2024 07:08:18 04/09/20 24 04/14/2024 MATER NIT21 PLUS CORE gestational age > or = 9W: YES Not Available [facility] ([facility]) [address] [facility], [place], [address], 04/14/2024 07:08:18 04/09/20 24 04/14/2024 MATER NIT21 PLUS CORE test result NEGATI VE Not Available [facility] ([facility]) [address] [facility], [place], [address], 04/14/2024 07:08:18 04/09/20 24 04/14/2024 MATER NIT21 PLUS CORE molder labels comments SARITA Dia speci men showe d an expec delia repre senta tion of chrom osome 21, 18 and 13 mater ial. Clini don corre latio n is viridiana ferrell. Not Available [facility] ([facility]) [address] [facility], [place], [address], 04/14/2024 07:08:18 04/09/20 24 04/14/2024 MATER NIT21 PLUS CORE approved by SARITA de luna MD, PhD, [facility] tor, [facility] Labor atori es Not Available [facility] ([facility]) [address] [facility], [place], [address], 04/14/2024 07:08:18 04/09/20 24 04/14/2024 MATER NIT21 PLUS CORE trisomy 21 (down syndrome) NEGATI VE Not Available [facility] ([facility]) [address] [place], [address], 04/14/2024 07:08:18 04/09/20 24 04/14/2024 MATER NIT21 PLUS CORE trisomy 18 (levy syndrome) NEGATI VE Not Available [facility] ([facility]) [address] [place], [address], 04/14/2024 07:08:18 04/09/20 24 04/14/2024 MATER NIT21 PLUS CORE trisomy 13 (patau syndrome) NEGATI VE Not Available [facility] ([facility]) [address] [place], [address], 04/14/2024 07:08:18 04/09/20 24 04/14/2024 MATER NIT21 PLUS CORE sex COMMEN T Consi stent with Femal e Not Available [facility] ([facility]) [address] [place], [address], 04/14/2024 07:08:18 04/09/20 24 04/14/2024 MATER NIT21 PLUS CORE negative predictive value NOTE The Negat robert Predi ctive Value (NPV) for triso my 21, 18, and 13 is great er than 99%. The NPV for SCA and ESS canno t be calcu lated as SCA and ESS are only repor delia when an abnor malit y is detec delia. Not Available [facility] ([facility]) [address] [place], [address], 04/14/2024 07:08:18 04/09/20 24 04/14/2024 MATER NIT21 PLUS CORE positive predictive value N/A Not Available [facility] ([facility]) [address] [place], [address], 04/14/2024 07:08:18 04/09/20 24 04/14/2024 MATER NIT21 [...] yet been valid ated. Not Available [facility] ([facility]) [address] [facility], [place], [address], 04/14/2024 07:08:18 04/09/20 24 04/14/2024 MATER NIT21 PLUS CORE test method COMMEN T See Notes Circu latin g cell- free DNA was purif ied from the plasm a compo nent of mater nal blood . The extra cted DNA was then conve rted into a [employer] DNA johnathan ry for aneup loidy froylan [...] s 16 and 22. Not Available [facility] ([facility]) [address] [facility], [place], [address], 04/14/2024 07:08:18 04/09/20 24 04/14/2024 MATER NIT21 PLUS CORE performance COMMEN T The perfo rmanc e avel cteri stics of the Mater niT(R ) 21 PLUS labor atory -deve loped test (LDT) have been deter mined in a clini don valid ation study with pregn ant women at incre ased risk for chrom osoma l aneup loidy .[1-4 ] Not Available [facility] ([facility]) [address] [facility], [place], [address], 04/14/2024 07:08:18 04/09/20 24 04/14/2024 MATER NIT21 PLUS CORE performance characterist ics [...] ----- ----- ----- ----- ----- ---! ! Trinoo my 21 (Kashif Syndr ome) ! 99.1% ! 99.9% ! !---- ----- ----- ----- ----- ----- ----- ----- ----- ----- ----- ---! ! Trinoo my 18 (Geronimo farris Syndr ome) ! >99.9 % ! 99.6% ! !---- ----- ----- ----- ----- ----- ----- ----- ----- ----- ----- ---! ! Trinoo my 13 (Kun golden Syndr ome) ! 91.7% ! 99.7% ! !---- ----- ----- ----- ----- ----- ----- ----- ----- ----- ----- ---! ! Sex Chrom osome Aneup christine jose## ! 96.2% ! 99.7% ! !---- ----- ----- ----- ----- ----- ----- ----- ----- ----- ----- ---! * As repor delia in [employer] datab ase nstd3 7 [http s://w ww.nc bi.nl .[facility] .gov/ dbvar /stud ies/n std37 / ] [...] eton gesta tion only. Not Available [facility] ([facility]) [address] [facility], [place], [address], 04/14/2024 07:08:18 04/09/20 24 04/14/2024 MATER NIT21 [...] be refer red for [place] [facility] elilisha and offer ed invas robert prena leonid [...] and Fragm in(R) ). Not Available [facility] ([facility]) [address] [facility], [place], [address], 04/14/2024 07:08:18 04/09/20 24 04/14/2024 MATER NIT21 PLUS CORE note COMMEN T See Notes Spectral Image. is a subsi diary of Labor atory Corpo ratio n of mirtha song, using the brand [employer]. This test was devel teaed and its perfo rmanc e avel cteri stics deter mined by [employer]. It has not been clear ed or appro epifanio by the Food and Drug Admin istra tion. This labor atory is certi fied under the Clini don Labor atory Impro vemen t Amend ments (CLIA ) as quali fied to perfo rm high compl exity clini don labor atory testi ng and accre dited by the Colle radha of Ameri can Patho logis ts (CAP) . If there is futur e clini don need for addin g Mater niT GENOM E testi ng, this speci men will be avail able until term. [facility] sampl es will not be retai herb beyon d 60 days. [facility] patie nts will have to send a new sampl e for re-se quenc ing ([facility] Test Code: 10374 4). Not Available [facility] ([facility]) [address] [facility], [place], [address], 04/14/2024 07:08:18 04/09/20 24 04/14/2024 MATER NIT21 PLUS CORE references COMMEN T 1. Louis TOLENTINO, et al. [place] [facility]. 2012; 14(3) :296- 305. 2. Karina del toro [place], et al. Prena t Diag. 2013; 33(6) :591- 597. 3. Augustine C, et al. Clin Chem. 2015 Jan;6 1(4): 608-6 16. 4. Louis TOLENTINO, et al. [place] [facility]. 2011; 13(11 ):913 -920. 5. ACOG/ SMFM Pract ice Bulle tin No. 226, Jul 2020. Not Available [facility] ([facility]) [address] [facility], [place], [address], 04/14/2024 07:08:18 04/09/20 24 04/14/2024 MATER NIT21 PLUS CORE pdf . Not Available [facility] ([facility]) [address] [facility], [place], [address], 04/14/2024 07:08:18 09/29/20 23 09/28/2023 XR, knee, 3 view No observ ation record ed. jschulterma [facility] [address] [place], [address], 10/10/2023 13:21:38 03/28/20 24 03/27/2024 US, obste tric, 2nd trime ster No observ ation record ed. JENNIE [facility] ([facility]) Registration/ Lab [address] [place], [address], 03/28/2024 16:09:43 Result Notes None recorded. Problems Name Problem SNOMED Code Status Onset Date Resolution Date Notes Provider Name and Address Organization Details Recorded Time Mild intermitten t asthma 096346944 Active 2021 Manuel Lopez MD Attn: Fabian g,[address] [facility], [place], [address], [place] - [facility] 2 11:59:54 Viral upper respiratory tract infection 803776478 Completed 202108/14/2023 Olive Islas APN, ANAYA-C Attn: Rachirma g,[address] [facility], [place], [address], [place] [facility] 3 10:32:25 Exposure to Influenzavi leslie Completed 202108/14/2023 Olive Islas APN, EMPLOYEE SERVICE OFFICER-C Attn: Accountin g,[address] [facility], [place], [address], [place] [facility] 3 10:32:19 24898947 Completed 202310/26/2024 Prisca Tinsley MD Attn: Fabian chao,[address] [facility], [place], [address], [place] [facility] 5 00:39:33 Anemia 187105136 Active 2023 Cassidy unger, [place] [facility] 4 09:17:18 Conjunctivi tis 8562186 Completed 08/04/2017 Vijay unger, [place] [facility] 7 11:16:45 Pharyngitis 292880752 Completed 08/04/2017 Medardo unger, [place] [facility] 7 11:16:37 Contact dermatitis caused by urushiol from [facility] eugenie 445243528 Completed 08/04/2017 Vijay un[place] [facility] 7 11:16:34 Mild intermitten t asthma 389729786 Completed 08/04/2017 Manuel Lopez MD Attn: Accountirma g,[address] [facility], [place], [address], [place] [facility] 2 11:59:54 Asthmatic bronchitis 156095225 Completed 08/04/2017 Vijay un[place] [facility] 7 11:16:40 Exacerbatio n of persistent asthma Completed 08/04/2017 Vijay Wooten cornel, [place] [facility] 7 11:16:31 Overweight 963649387 Active DUNCAN [place], [place] [facility] 6 15:06:01 Perennial allergic rhinitis 759764493 Active 2016 Vijay Wooten [place], [place] [facility] 7 11:17:18 Moderate persistent asthma 123264558 Completed 201608/26/2022 Manuel Lopez MD Attn: Fabian chao,[address] [facility], [place], [address], [place] [facility] 2 11:59:51 Problem Notes None recorded. Medical Equipment None Reported. Allergies Allergen ID Allergen Name Allergen Category Reaction Reaction Severity Criticality Documentation Date Start Date Code Code System Note Provider Name and Address Organization Details Recorded Time 11949 Augmentin medicatio n Not available Not available Not available 03/23/2015 70324 2 RxNorm DUNCAN [place], [place] - [facility] 5 16:09:12 Medications Name Sig Start Date Stop Date [...] completed Not Available Not Available Not Available Basilia Pritchard [facility] with Large Mask USE DIRECTED WITH ALBUTEROL INHALER 08/14 completed Not Available Not Available Not Available Lian 0.25 mg-0.035 mg tablet TAKE 1 TABLET BY MOUTH EVERY DAY 02/26 completed Not Available Not Available Not Available Vitals Date Recorded Heart rate Respiratory rate Body temperature Body height Body mass index (BMI) Body mass index (BMI) [Percentile] Per age and sex Body weight Systolic And Diastolic Provider Name and Address Organization Details Last Updated DateTime 3 76 /min 16 /min 98.1 [degF] 151.77 cm 30.6 kg/m2 96 % 10205.6 2 g 114/68 mm[Hg] Kathy west [place] [facility] 3 12:04:09 Date Recorded Body height Body mass index (BMI) [Percentile] Per age and sex Body mass index (BMI) Body weight Respiratory rate Provider Name and Address Organization Details Last Updated DateTime 4 151.77 cm 94 % 30.2 kg/m2 58007.0 94020 g 18 /min Cassidy Berumen [facility] 4 09:16:23 Date Recorded Body weight Provider Name an d Address Organization Details Last Updated DateTime 04/02/2024 59385.664225 g RAYMOND Avendano Attn: Accounting,[address] [place], [address], [facility] 04/02/2024 17:08:37 Date Recorded Body height Body mass index (BMI) Body mass index (BMI) [Percentile] Per age and sex Heart rate Systolic And Diastolic Provider Name and Address Organization Details Last Updated DateTime 04/02/2024 151.77 cm 31.8 kg/m2 95.51 % 97 /min 95/63 mm[Hg] Anita nagy [place] [facility] 4 17:01:51 Date Recorded Body height Body mass index (BMI) Body mass index (BMI) [Percentile] Per age and sex Body weight Oxygen saturation Oxygen saturation in Arterial blood by Pulse oximetry Heart rate Respiratory rate Systolic And Diastolic Provider Name and Address Organization Details Last Updated DateTime 3 151.77 cm 28.9 kg/m2 93 % 52616.0 8 g 98 % 98 % 70 /min 16 /min 106/76 mm[Hg] MAMTA Hartley [facility] 3 10:29:37 Date Recorded Body height Respiratory rate Body mass index (BMI) Body mass index (BMI) [Percentile] Per age and sex Body weight Heart rate Oxygen saturation Oxygen saturation in Arterial blood by Pulse oximetry Systolic And Diastolic Provider Name and Address Organization Details Last Updated DateTime 2 151.77 cm 18 /min 29.6 kg/m2 95 % 99887.2 6 g 86 /min 99 % 99 % 112/76 mm[Hg] Cassidy Berumen [facility] 2 14:18:48 Social History Question Answer Notes LastModified by Organizat ion Details LastModified Time Tobacco Smoking Status Never Smoker DUNCAN Santillan, [facility] 11/17/2015 15:26:20 Do You Wear A Helmet When Biking? No Information not available 03/23/2015 Are You Blind Or Do You Have Difficulty Seeing? No Information not available 08/14/2023 What Is Your Level Of Caffeine Consumption? Moderate Information not available 08/14/2023 What Type Of Relocation Specialist Do You Use? None Information not available 07/08/2021 In The 14 Days Before Symptom Onset, Have You Had Close Contact With A Laboratory-confi rmed COVID-19 While That Case Was Ill? No [email or web address] Information not available 10/05/2022 In The 14 Days Before Symptom Onset, Have You Had Close Contact With A Person Who Is Under Investigation For COVID-19 While That Person Was Ill? No [email or web address] Information not available 10/05/2022 Have You Been To An Area Known To Be High Risk For COVID-19? No [email or web address] Information not available 10/05/2022 Are You Deaf Or Do You Have Serious Difficulty Hearing? No Information not available 08/14/2023 What Type Of Diet Are You Following? REGULAR Information not available 03/23/2015 What Is The Highest Grade Or Level Of School You Have Completed Or The Highest Degree You Have Received? [id number] Finished School In September 2022, Walks In February 2023 Information not available 01/19/2023 Have There Been Any Changes To Your Family Or Social Situation? No Information not available 03/23/2015 Are There Any Guns Present In Your Home? No Information not available 03/23/2015 What Is Your Home Situation? Mother Mom, Step Dad, Sisters And Brothers [email or web address] Information not available 11/17/2015 Do You Use [...] 08/14/2023 What Is Your Relationship Status? Single Information not available 10/05/2022 What Is The Name Of Your School? [employer] Information not available 01/19/2023 Do You Use Your Seat Belt Or Car Seat Routinely? Yes Information not available 08/14/2023 Are You Sexually Active? No [email or web address] Information not available 10/05/2022 Do You Have Any Siblings? 2 1/2 Sisters [email or web address] Information not available 11/17/2015 Do You Have Smoke And Carbon Monoxide Detectors In Your Home? Yes Information not available 03/23/2015 Are You Passively Exposed To Smoke? No Information not available 03/23/2015 What Types Of Sporting Activities Do You Participate In? None Information not available 11/17/2015 Do You Use Sunscreen Routinely? Yes Information not available 03/23/2015 Has Tobacco Cessation Counseling Been Provided? Yes Information not available 01/19/2023 On What Date Was Tobacco Cessation Counseling Provided? 02/27/2024 [email or web address] Information not available 02/27/2024 Are You Currently In School? No [email or web address] Information not available 01/19/2023 Sex: Female Functional Status Question Answer Note LastModified by Organizat ion Details LastModified Time Do you use any illicit or recreational drugs? No [email or web address] Information not available 10/05/2022 Do you or have you ever used any other forms of tobacco or nicotine? No [email or web address] Information not available 10/05/2022 What is your level of alcohol consumption? None [email or web address] Information not available 10/05/2022 Are you currently employed? Yes Information not available 08/14/2023 Are you able to care for yourself? Yes Information not available 08/14/2023 What is your occupation? [employer] [place] Information not available 08/14/2023 What is your exercise level? Moderate [email or web address] Information not available 11/17/2015 Mental Status Question Answer Note LastModified by Organization D etails LastModified Time Do you feel stressed (tense, restless, nervous, or anxious, or unable to sleep at night)? [id number] Information not available 08/14/2023 Are you or have you been involved with bullying? No Information not available 03/23/2015 Family History Relationship Description Onset Age of this Age Resolved Age Notes LastModified by Organization Details LastModified Time Sister Asthma [email or web address] Not availabl e 08/04/2017 11:17:28 Mother Asthma [email or web address] Not availabl e 04/19/2019 10:30:57 Maternal Grandmother Diabetes mellitus [email or web address] Not available 03/2023 10:25:36 Paternal Grandmother Myocardial infarction [email or web address] Not available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 Diastolic BP Location Tested BP Systolic [...] in lbs Pre/Post Dialysis Refused With clothes 161.337688727356 BP Diastolic BP Location Tested BP Systolic [...] At Estimated Date of Delivery false Thalassemia (Polish, [place]er, Mediterranean, Or Background): MCV < 80 false Neural Tube Defect (Meningom yelocele, Spina Bifida, Or Anencephaly) false Congenital Heart Defect false Down Syndrome false Stephane-Sachs (eg, Orthodoxy, Cajun, Serbian-[place]uvanna) f alse Torrey Disease false Sickle Cell Disease Or Trait () false Hemophilia Or Other Blood Disorders false Muscular Dystrophy false Cystic Fibrosis false Allendale's Chorea false Mental Retardation/Autism false If Yes, [...] ed By 02/27/2024 Anticipated course of care [facility] 02/27/2024 Alcohol [facility]red[facility] 02/27/2024 Intimate partner violence [facility] 02/27/2024 Environmental/work hazards d eldreds 02/27/2024 Screening for aneuploidy del dreds 02/27/2024 Nutrition counseling ; special diet; dietary precautions (mercury, listeriosis) deldreds 02/27/2024 Childbirth classes/hospital facilities [facility] 02/27/2024 [facility] and other [facility]/27/2024 Risk factors identif ied by history [facility] 02/27/2024 Weight gain counseling deldr eds 02/27/2024 [facility] 02/27/2024 Teratogens [facility] 02/27/2024 Use of any medicatio ns (including supplements, vitamins, herbs, or OTC drugs) [facility] 02/27/2024 [facility] 02/27/2024 Sexual activity [facility] 02/27/2024 Tobacco/smoking cess ation counseling (ask, advise, assess, assist, and arrange) [facility] 02/27/2024 Illicit/recreational drugs [facility] 02/27/2024 Dental care [facility] 02/27/2024 [facility] 02/27/2024 Seat belt use [facility] 02/27/2024 Indications for ultrasonography [facility] 02/27/2024 [facility] 02/27/2024 Tobacco/smoking cess ation counseling (ask, advise, [...]
--- OUTSIDE RECORDS SUMMARY | 2025-04-14 21:47 | XMS_ITS | Clinical Summary ---
Author Organization [facility] Address [address] [place] [address] Phone Care Team Providers Care Make Up Man Name Role Phone Lashae Mullins MD Primary Care Provider [phone] Allergies Active Allergy Reactions Criticality Noted Date [...] Comments Blood Pressure 120/87 10/28/2023 8:43 PM RETAIL CLIENT SOLUTIONS CONSULTANT Pulse 88 10/28/2023 8:43 PM RETAIL CLIENT SOLUTIONS CONSULTANT Temperature 36.8 C (98.2 F) 10/28/2023 6:40 PM RETAIL CLIENT SOLUTIONS CONSULTANT Respiratory Rate 18 10/28/2023 8:43 PM RETAIL CLIENT SOLUTIONS CONSULTANT Oxygen Saturation 99% 10/28/2023 8:43 PM RETAIL CLIENT SOLUTIONS CONSULTANT Inhaled Oxygen Concentration - - Weight 67.9 kg (149 lb 11.1 oz) 10/28/2023 6:40 PM RETAIL CLIENT SOLUTIONS CONSULTANT Height 149.9 cm (4' 11) 10/28/2023 6:40 PM RETAIL CLIENT SOLUTIONS CONSULTANT Body Mass Index 30.23 10/28/2023 6:40 PM RETAIL CLIENT SOLUTIONS CONSULTANT Body Mass Index Percentile 94.65% 10/28/2023 6:4 0 PM RETAIL CLIENT SOLUTIONS CONSULTANT Growth Chart: [facility] (Girls, 2- 20 Years) Plan of Treatment Health Maintenance Due Date Last Done Comments Hepatitis C Virus (HCV) Screening 2005 SARS-COV-2 Immunization ( season) 2024 Influenza Immunization (Season Ended) 2025 08/14/2023, 08/14/2019, 11/29/2018, Additional history exists Respiratory Syncytial Virus (RSV) Immunization (Adult) (1 [...] to complete this topic Insurance Care Teams Make Up Man Relationship Specialty Start Date End Date Lashae Mullins MD [address] [place] [address] PCP - General Pediatrics 03/20/17
--- OUTSIDE RECORDS SUMMARY | 2025-04-14 21:47 | XMS_ITS | Data Portability ---
Author Organization [facility] Address [address] [place] [address] Care Team Providers [facility] [employer] Manager Name Role Phone NADIA CORNEJONIKANT Primary Care Provider Assessment Encounter Date Assessment Date Assessment LastModified by Organization Details LastModified Time 08/16/2024 08/16/2024 Patient is ___weeks . Discussed plan. [email or web address] Not available 08/16/2024 13:56:47 Plan of Treatment Reminders Order Date Submit Date Provider Last Modified By Organization Details Last Modified Time Details Appointments None recorded. Lab None recorded. Referral None recorded. Procedures None recorded. Surgeries section (SURG) 2023 024 [facility], [facility] [address], [address], 5 01:30:37 Imaging None recorded. Medication Orders Lexapro 20 mg tablet 2024 025 [id number], [address] [place], [address], 5 00:39:05 Mirena 21 mcg/24 hr (up to 8 years) 52 mg intrauterin e device 2024 025 [email or web address] Not available 15:33:57 Patient TargetsNo targets recorded. Patient InstructionsNo instructions recorded. Reason for Referral None Reported. Results Created Date Observation Date Name Description Value Unit Range Abnormal Flag Note LastModifiedBy Organization Detail LastModifiedTime 07/17/20 24 07/17/2024 BACTE RIAL VAGIN OSIS PANEL (WITH LACTO BACIL PRABHA BRAD TURCIOS) BY QRT PRC, KIM GOMEZ (GWENDOLYN) louis (gwendolyn), [facility], bacterial vaginosis (bv) panel with lactobacillu s profiling by qpcr CANCEL LED Error Not Available [facility] (Lab) [address], [place], [address], 07/18/2024 06:14:43 07/17/20 24 07/17/2024 ANA MARÍA DA LEE I BY RT-PC R irwin krusei by RT-PCR CANCEL LED Dupli josé Not Available [facility] (Lab) [address], [place], [address], 08/05/2024 13:54:42 07/17/20 24 07/17/2024 MOBIL UNCUS MULIE RIS/C URTIS KERRI, RT-PC R, ONE SWAB mobiluncus mulieris/cur tisli RT-PCR, louis CANCEL LED Error Not Available [facility] (Lab) [address], [place], [address], 07/18/2024 06:15:58 07/17/20 24 07/17/2024 ANA MARÍA DA VAGIN ITIS PANEL RT-PC R, KIM myers (gwendolyn), [facility], irwin vaginitis panel RT-PCR CANCEL LED Error Not Available [facility] (Lab) [address], [place], [address], 07/18/2024 06:15:58 07/17/20 24 07/17/2024 UROGE NITAL MYCOP LASMA /UREA PLASM A PANEL RT-PC R, ONESW AB urogenital mycoplasma/u reaplasma panel RT-PCR, oneswab ([facility]/dc// [facility]) CANCEL LED Error Not Available [facility] (Lab) [address] [place], [address], 07/18/2024 06:15:59 10/09/07/17/2024 BACTE RIAL VAGIN OSIS PANEL (WITH LACTO BACIL PRABHA PROFI LING) BY QRT SHAILESH, KIM GOMEZ (GWENDOLYN) atopobium vaginae PCR Positi ve abnormal Swab- 1 Cerv End Not Available [facility] (Lab) [address] [place], [address], 08/05/2024 13:54:42 07/17/20 24 07/17/2024 BACTE RIAL VAGIN OSIS PANEL (WITH LACTO BACIL PRABHA PROFI LING) BY QRT SHAILESH, KIM GOMEZ (GWENDOLYN) bacterial vaginosis associated bacterium 1 (bvab1) RT PCR Negati ve Swab- 1 Cerv End Not Available [facility] (Lab) [address] [place], [address], 08/05/2024 13:54:42 07/17/20 24 07/17/2024 BACTE RIAL VAGIN OSIS PANEL (WITH LACTO BACIL PRABHA PROFI LING) BY QRT SHAILESH, KIM GOMEZ (GWENDOLYN) bacterial vaginosis associated bacteria 2 (bvab2) Negati ve Swab- 1 Cerv End Not Available [facility] (Lab) [address] [place], [address], 08/05/2024 13:54:42 07/17/20 24 07/17/2024 BACTE RIAL VAGIN OSIS PANEL (WITH LACTO BACIL PRABHA PROFI LING) BY QRT SHAILESH, KIM GOMEZ (GWENDOLYN) bacterial vaginosis associated bacterium 3 (bvab3) RT PCR Negati ve Swab- 1 Cerv End Not Available [facility] (Lab) [address] [place], [address], 08/05/2024 13:54:42 07/17/20 24 07/17/2024 BACTE RIAL VAGIN OSIS PANEL (WITH LACTO BACIL PRABHA PROFI LING) BY QRT SHAILESH, KIM GOMEZ (GWENDOLYN) bacteroides fragilis by real - time PCR Negati ve Swab- 1 Cerv End Not Available [facility] (Lab) [address] [place], [address], 08/05/2024 13:54:42 07/17/20 24 07/17/2024 BACTE RIAL VAGIN OSIS PANEL (WITH LACTO BACIL PRABHA PROFI LING) BY QRT PRC, KIM GOMEZ (L) bifidobacter ium breve by real-time PCR Negati ve Swab- 1 Cerv End Not Available [facility] (Lab) [address], [place], [address], 08/05/2024 13:54:42 07/17/20 24 07/17/2024 BACTE RIAL VAGIN OSIS PANEL (WITH LACTO BACIL PRABHA PROFI LING) BY QRT PRC, KIM GOMEZ (MDL) gardnerella vaginalis PCR Positi ve abnormal Swab- 1 Cerv End Not Available [facility] (Lab) [address], [place], [address], 08/05/2024 13:54:42 07/17/20 24 07/17/2024 BACTE RIAL VAGIN OSIS PANEL (WITH LACTO BACIL PRABHA PROFI LING) BY QRT PRC, KIM GOMEZ (L) lactobacillu s (bvpanel) PCR See Commen t Swab- 1 Cerv End L.cri spatu s: Negat darline L.jeff senii : Posit darline L.gas seri : Negat darline L.ine rs : Posit darline. Not Available [facility] (Lab) [address], [place], [address], 08/05/2024 13:54:42 07/17/20 24 07/17/2024 BACTE RIAL VAGIN OSIS PANEL (WITH LACTO BACIL PRABHA PROFI LING) BY QRT PRC, KIM GOMEZ (GWENDOLYN) lactobacillu s acidophilus by real-time PCR Negati ve Swab- 1 Cerv End Not Available [facility] (Lab) [address], [place], [address], 08/05/2024 13:54:42 07/17/20 24 07/17/2024 BACTE RIAL VAGIN OSIS PANEL (WITH LACTO BACIL PRABHA PROFI LING) BY QRT PRC, KIM GOMEZ (GWENDOLYN) megasphaera species (type 1 and type 2) PCR Negati ve (Type1 ,Type2 ) Swab- 1 Cerv End Type1 :Nega tive Type2 :Nega tive. Not Available [facility] (Lab) [address] [place], [address], 08/05/2024 13:54:42 07/17/20 24 07/17/2024 BACTE RIAL VAGIN OSIS PANEL (WITH LACTO BACIL PRABHA PROFI LING) BY QRT PRC, KIM GOMEZ (GWENDOLYN) mobiluncus curtisii by real-time PCR Negati ve Swab- 1 Cerv End Not Available [facility] (Lab) [address] [place], [address], 08/05/2024 13:54:42 07/17/20 24 07/17/2024 BACTE RIAL VAGIN OSIS PANEL (WITH LACTO BACIL PRABHA PROFI LING) BY QRT PRC, KIM GOMEZ (GWENDOLYN) mobiluncus mulieris by real-time PCR Negati ve Swab- 1 Cerv End Not Available [facility] (Lab) [address] [place], [address], 08/05/2024 13:54:42 07/17/20 24 07/17/2024 BACTE RIAL VAGIN OSIS PANEL (WITH LACTO BACIL PRABHA PROFI LING) BY QRT PRC, KIM GOMEZ (GWENDOLYN) prevotella bivia by real-time PCR Negati ve Swab- 1 Cerv End Not Available [facility] (Lab) [address] [place], [address], 08/05/2024 13:54:42 07/17/20 24 07/17/2024 BACTE RIAL VAGIN OSIS PANEL (WITH LACTO BACIL PRABHA PROFI LING) BY QRT PRC, KIM GOMEZ (GWENDOLYN) sneathia sanguinegens real-time PCR Negati ve Swab- 1 Cerv End Not Available [facility] (Lab) [address], [place], [address], 08/05/2024 13:54:42 07/17/20 24 07/17/2024 BACTE RIAL VAGIN OSIS PANEL (WITH LACTO BACIL PRABHA PROFPro TURCIOS) BY QRT PRC, ONESW AB (MDL) streptococcu s anginosus by real-time PCR Negati ve Swab- 1 Cerv End Not Available [facility] (Lab) [address], [place], [address], 08/05/2024 13:54:42 07/17/20 24 07/17/2024 MOBIL UNCUS MULIE RIS/C JEREMY MANNING, RT-PC R, ONE SWAB mobiluncus mulieris and mobiluncus curtisii by RT-PCR Negati ve Swab- 1 Cerv End Not Available [facility] (Lab) [address], [place], [address], 08/05/2024 13:54:43 07/17/20 24 07/17/2024 ANA MARÍA DA VAGIN ITIS PANEL RT-PC R, ONESW AB irwin albicans PCR Positi ve abnormal Swab- 1 Cerv End Not Available [facility] (Lab) [address], [place], [address], 08/05/2024 13:54:43 07/17/20 24 07/17/2024 ANA MARÍA DA VAGIN ITIS PANEL RT-PC R, ONESW AB irwin glabrata PCR Negati ve Swab- 1 Cerv End Not Available [facility] (Lab) [address] [place], [address], 08/05/2024 13:54:43 07/17/20 24 07/17/2024 ANA MARÍA DA VAGIN ITIS PANEL RT-PC R, ONESW AB irwin krusei by RT-PCR Negati ve Swab- 1 Cerv End Not Available [facility] (Lab) [address] [place], [address], 08/05/2024 13:54:43 07/17/20 24 07/17/2024 ANA MARÍA DA VAGIN ITIS PANEL RT-PC R, ONESW AB irwin parapsilosis PCR Negati ve Swab- 1 Cerv End Not Available [facility] (Lab) [address] [place], [address], 08/05/2024 13:54:43 07/17/20 24 07/17/2024 ANA MARÍA DA VAGIN ITIS PANEL RT-PC R, ONESW AB irwin tropicalis PCR Negati ve Swab- 1 Cerv End Not Available [facility] (Lab) [address], [place], [address], 08/05/2024 13:54:43 07/17/20 24 07/17/2024 UROGE NITAL MYCOP LASMA /UREA PLASM A PANEL RT-PC R, ONESW AB mycoplasma genitalium by RT-PCR Positi ve abnormal Swab- 1 Cerv End Unabl e to deter mine Azith romyc in resis tance . Unabl e to deter mine Fluor oquin olone resis tance . Not Available [facility] (Lab) [address], [place], [address], 08/05/2024 13:54:43 07/17/20 24 07/17/2024 UROGE NITAL MYCOP LASMA /UREA PLASM A PANEL RT-PC R, ONESW AB mycoplasma hominis by RT-PCR Negati ve Swab- 1 Cerv End Not Available [facility] (Lab) [address], [place], [address], 08/05/2024 13:54:43 07/17/20 24 07/17/2024 UROGE NITAL MYCOP LASMA /UREA PLASM A PANEL RT-PC R, ONESW AB ureaplasma urealyticum by RT-PCR Negati ve Swab- 1 Cerv End Not Available [facility] (Lab) [address], [place], [address], 08/05/2024 13:54:43 08/16/20 24 08/16/2024 CULTU RE: [...] t Abnor mal: No Resul ting Lab: [facility] [address] [facility] [address] Tel: CULTU RE ----- ----- ----- --- No Group B strep isola delia at 2 days (mary ctive broth enhan cemen t) Not Available [facility] (Lab) [address] [place], [address], 08/19/2024 15:07:43 11/25/19 25 11/25/2024 WOMEN 'S HEALT H SWAB PLUS, CAROL bacterial vaginosis (bv), tma Positi ve negati ve abnormal Not Available [facility] (Lab) [address] [place], [address], 12/02/2024 00:13:31 11/25/19 25 11/25/2024 WOMEN 'S HEALT H SWAB PLUS, CAROL irwin species, tma Negati ve negati ve Not Available [facility] (Lab) [address] [place], [address], 12/02/2024 00:13:31 11/25/19 25 11/25/2024 WOMEN 'S HEALT H SWAB PLUS, CAROL irwin glabrata, tma Negati ve negati ve Not Available [facility] (Lab) [address] [place], [address], 12/02/2024 00:13:31 11/25/19 25 11/25/2024 WOMEN 'S HEALT H SWAB PLUS, CAROL trichomonas vaginalis, tma Negati ve negati ve Not Available [facility] (Lab) [address] [place], [address], 12/02/2024 00:13:31 11/25/19 25 11/25/2024 WOMEN 'S HEALT H SWAB PLUS, CAROL chlamydia trachomatis, PCR Negati ve negati ve Not Available [facility] (Lab) [address], [place], [address], 12/02/2024 00:13:31 11/25/19 25 11/25/2024 WOMEN 'S [...] rmed using the Trans cript ion [employer] delia Ampli ficat ion metho d. Tests for Ana María da glabr tatiana, Trich omona s vagin marta, Chlam ydia trach omati s, and Neiss eria gonor rhoea e are also inclu ded in this panel . Not Available [facility] (Lab) [address], [place], [address], 12/02/2024 00:13:31 11/25/1911/25/2024 UROGE NITAL MYCOP LASMA /UREA PLASM A PANEL RT-PC R, ONESW AB mycoplasma genitalium by RT-PCR Negati ve Swab- 1 Cerv End Not Available [facility] (Lab) [address], [place], [address], 12/02/2024 00:13:32 02/17/20 25 11/25/2024 UROGE NITAL MYCOP LASMA /UREA PLASM A PANEL RT-PC R, ONESW AB mycoplasma hominis by RT-PCR Negati ve Swab- 1 Cerv End Not Available [facility] (Lab) [address], [place], [address], 12/02/2024 00:13:32 11/25/19 25 11/25/2024 UROGE NITAL MYCOP LASMA /UREA PLASM A PANEL RT-PC R, ONESW AB ureaplasma urealyticum by RT-PCR Negati ve Swab- 1 Cerv End Not Available [facility] (Lab) [address] [place], [address], 12/02/2024 00:13:32 07/17/20 24 07/17/2024 US, obste tric, follo w-up No observ ation record ed. [facility] [address], [place], [address], 07/17/2024 13:03:58 07/17/2007/17/2024 US, obste tric, bioph ysica l profi le + non-s tress test No observ ation record ed. [facility] [address], [place], [address], 07/17/2024 13:04:16 07/17/2007/17/2024 US, doppl er, umbil ical arter y veloc imetr y No observ ation record ed. [facility] [address], [place], [address], 07/17/2024 13:04:28 07/17/2007/17/2024 US, obste tric, follo w-up No observ ation record ed. [email or web address] [address], [place], [address], 07/18/2024 11:13:03 07/17/2007/17/2024 non-s tress test No observ ation record ed. [email or web address] [place] [address], [place], [address], 07/17/2024 18:46:24 07/23/2007/23/2024 US, obste tric No observ ation record ed. [email or web address] [facility] [address], [place], [address], 07/24/2024 09:50:10 07/25/2007/25/2024 imagi ng/di agnos tic resul t No observ ation record ed. [facility] [address], [place], [address], 07/26/2024 12:02:39 07/30/2007/29/2024 imagi ng/di agnos tic resul t No observ ation record ed. [facility] [address], [place], [address], 07/30/2024 14:14:19 07/30/2007/29/2024 imagi ng/di agnos tic resul t No observ ation record ed. [facility] [address], [place], [address], 07/30/2024 14:14:36 08/01/2008/01/2024 US, obste tric, limit ed No observ ation record ed. [email or web address] [facility] [address], [place], [address], 08/02/2024 11:09:57 08/02/2008/02/2024 US, obste tric, bioph ysica l profi le No observ ation record ed. [email or web address] [address], [place], [address], 08/03/2024 17:55:49 08/02/2008/02/2024 non-s tress test No observ ation record ed. [address], [place], [address], 08/02/2024 14:50:48 08/02/2008/02/2024 US, obste tric, bioph ysica l profi le + non-s tress test No observ ation record ed. [facility] [address], [place], [address], 08/02/2024 17:39:47 08/02/2008/02/2024 US, doppl er, umbil ical arter y veloc imetr y No observ ation record ed. [facility] [address], [place], [address], 08/02/2024 17:39:59 08/05/2008/05/2024 US, obste tric, follo w-up No observ ation record ed. [address] [facility] [address], [place], [address], 08/05/2024 15:42:02 08/05/2008/05/2024 US, obste tric, follo w-up No observ ation record ed. [email or web address] [facility] [address], [place], [address], 08/05/2024 23:41:57 08/05/2008/05/2024 US, obste tric, follo w-up No observ ation record ed. [email or web address] [facility], [place], [address], 08/05/2024 15:40:58 08/08/2008/08/2024 imagi ng/di agnos tic resul t No observ ation record ed. [facility] [address], [place], [address], 08/12/2024 14:32:44 08/12/20 24 08/12/2024 US, obste tric, follo w-up No observ ation record ed. [facility] [address], [place], [address], 08/13/2024 21:48:41 08/15/20 24 08/15/2024 imagi ng/di agnos tic resul t No observ ation record ed. [facility] [address], [place], [address], 08/15/2024 22:27:24 08/19/20 24 08/19/2024 imagi ng/di agnos tic resul t No observ ation record ed. [facility] [address], [place], [address], 08/20/2024 00:22:03 08/22/20 24 08/22/2024 imagi ng/di agnos tic resul t No observ ation record ed. [facility] [address], [place], [address], 08/23/2024 11:27:55 08/26/20 24 08/26/2024 imagi ng/di agnos tic resul t No observ ation record ed. [facility] [address] [facility] [facility], [place], [address], 08/27/2024 01:05:14 08/26/20 24 08/26/2024 imagi ng/di agnos tic resul t No observ ation record ed. [facility] [address], [place], [address], 08/27/2024 11:19:35 08/27/20 24 08/26/2024 US, obste tric, follo w-up No observ ation record ed. [address] [facility] [address], [place], [address], 08/28/2024 10:34:43 08/27/20 24 08/26/2024 US, obste tric, follo w-up No observ ation record ed. [address] [facility] [address], [place], [address], 08/28/2024 10:34:59 08/27/2008/26/2024 US, obste tric, follo w-up No observ ation record ed. [address] [facility] [address], [place], [address], 08/28/2024 11:25:30 Result Notes None recorded. Problems Name Problem SNOMED Code Status Onset Date Resolution Date Notes Provider Name and Address Organization Details Recorded Time Pregnanc y 27463853 Completed 202308/29/2024 Jeffery [facility] 4 16:59:28 Small for gestatio nal age fetus [id number] Completed 4%, AC 3% to [facility] in [facility] on 07/23 @ 12:45, 08/05/24 appt Jeffery unger [facility] 4 11:10:08 Blood group O Rh(D) negative [id number] Completed Rhogam received 06/20/24 Marleny unger [facility] 4 11:00:12 Problem Notes None recorded. Procedures Surgical History Date Name Laterality Status Provider Name and Address Organization Details Recorded Time IUD Insertion completed HANSA WETZEL MD [address], [place], [address], [facility] 10/10/2024 15:26:25 4 section completed Hope Riley [facility] 10/03/2024 13:51:39 Imaging Results None recorded. Procedure Notes None recorded. Medical Equipment None Reported. Allergies Allergen ID Allergen Name Allergen Category Reaction Reaction Severity Criticality Documentation Date Start Date Code Code System Note Provider Name and Address Organization Details Recorded Time 34711 Augmentin medicatio n vomiting Not available Not available 04/23/2024 90161 2 RxNorm Janna Luis cornel, [facility] 15:24:49 Medications Name Sig Start Date Stop [...] Not Available metronidazo le 500 mg tablet TAKE 1 TABLET BY MOUTH TWICE A DAY FOR 7 DAYS active Not Available Not Available No t Available sulfamethox azole 800 mg-trimetho prim 160 mg [...] TAKE 1 TABLET BY MOUTH EVERY DAY 2024 active Not Available Not Available Not Avai lable escitalopra m 20 mg tablet TAKE 1 TABLET BY MOUTH EVERY DAY active Not Available Not Available No t Available salicylic acid 3 % topical ointment APPLY 1 APPLICATI ON TOPICALLY EVERY DAY 10/11 completed Not Available Not Available Not Available nitrofurant oin monohydrate /macrocryst als 100 mg capsule TAKE 1 CAPSULE BY MOUTH TWICE A DAY 07/17 completed Not Available Not Available Not Available riboflavin (vitamin B2) active Not Available Not Available Not Available active Not Available Not Avai lable Not Available Lian 0.25 mg-0.035 mg tablet TAKE 1 TABLET BY MOUTH EVERY DAY 04/23 completed Not Available Not Available Not Available Vitals Date Recorded Body height Body mass index (BMI) [Percentile] Per age and sex Body mass index (BMI) Body weight Systolic And Diastolic Provider Name and Address Organization Details Last Updated DateTime 10/10/2024 149.86 cm 98.63 % 39.6 kg/m2 88259.1 g 108/71 mm[Hg] Naomie Chin [facility] 14:35:52 Date Recorded Body height Body mass index (BMI) [Percentile] Per age and sex Body mass index (BMI) Body weight Systolic And Diastolic Provider Name and Address Organization Details Last Updated DateTime 11/25/2024 149.86 cm 98.97 % 41 kg/m2 59929.2 5 g 130/81 mm[Hg] [facility] 5 11:39:19 Date Recorded Body height Body mass index (BMI) Body mass index (BMI) [Percentile] Per age and sex Body weight Systolic And Diastolic Provider Name and Address Organization Details Last Updated DateTime 08/16/2024 149.86 cm 41.4 kg/m2 99.12 % 63787.4 4 g 129/84 mm[Hg] [facility] 4 13:58:12 Date Recorded Body height Body mass index (BMI) [Percentile] Per age and sex Body mass index (BMI) Body weight Systolic And Diastolic Provider Name and Address Organization Details Last Updated DateTime 08/23/2024 149.86 cm 99.28 % 42.2 kg/m2 41075.8 1 g 121/77 mm[Hg] [facility] 4 12:03:52 Date Recorded Body height Body mass index (BMI) [Percentile] Per age and sex Body mass index (BMI) Body weight Systolic And Diastolic Provider Name and Address Organization Details Last Updated DateTime 09/04/2024 149.86 cm 98.38 % 38.6 kg/m2 67776.1 4 g 117/81 mm[Hg] [facility] 4 15:30:04 Social History Question Answer Notes LastModified by Organizat ion Details LastModified Time Tobacco Smoking Status Unknown If Ever [facility] 07/17/2024 13:11:37 How Many Years Have You Consumed Alcohol? [...] Or The Highest Degree You Have Received? [id number] Information not available 05/21/2024 Are There Any [...] IV Drugs? No Information not available 05/21/2024 Do You Have Difficulty Walking Or Climbing Stairs? No [email or web address] Information not available 07/08/2024 Sex: Unknown Functional Status Question Answer Note LastModified by Organizat ion Details LastModified Time Do you use any illicit or recreational drugs? No Information not available 05/21/2024 What is your level of alcohol consumption? None Information not available 05/21/2024 Are you able to walk? [email or web address] Information not available 05/21/2024 Are you able to care for yourself? Yes [email or web address] Information n ot available 07/08/2024 Do you have difficulty dressing or bathing? No [email or web address] Information not available 07/08/2024 What is your exercise level? Occasional Information not available 05/21/2024 Mental Status Question Answer Note LastModified by Organization D etails LastModified Time Do you feel stressed (tense, restless, nervous, or anxious, or unable to sleep at night)? [id number] Information not available 05/21/2024 Family History Relationship Description Onset Age of this Age Resolved Age Notes LastModified by Organization Details LastModified Time Mother Asthma [email or web address] Not available 15:28:27 Sister Asthma [email or web address] Not available 15:28:34 Medical History Condition Response Allergies (Food, seasonal, environmental ) Y Other N Breast Cancer N Drug/Latex Allergies/Reactions N Blood Transfusion N Dermatologic Disorders N Lung Disease N Defects or Inherited Disease N Breast Problem N Gestational Diabetes N Hematologic disorders N Anesthesia Complications N History of STI N Deep Vein Thrombosis N Polycystic ovary syndrome N Anxiety Disorder N Autoimmune disease N Arthritis N Infertility N Polyps N Acid Reflux (GERD) Y History of abnormal pap N Cancer N Stroke N Varicosities N Neurologic/Epilepsy N Endometriosis N High Cholesterol N Headaches N Fibromyalgia N Kidney Disease N Heart Problems N Kidney or Bladder Problems N Thyroid Problems N GI Problems N Eating Disorder [...] SNOMED-CT Code Diagnosis ICD10 Code Diagnosis Note Devendra White MD [place] [address] [address] 04/23/2024 13:42:16 04/23/2024 15:50:26 screening for malformation 339707022 Z36.3 Z3A.20 HANSA WETZEL MD [facility] [address],[place] [address] 04/23/2024 13:59:45 05/06/2024 16:06:08 Routine care 457462642 Z34.02 - transfer of care at 20 weeks- continue vitamin [id number] Devendra White MD [facility] [address],[place] [address] 05/21/2024 11:14:47 05/21/2024 13:13:13 screening 218306254 Z36.2 Z3A.24 [id number] HANSA WETZEL MD [facility] [address],[place] [address] 05/21/2024 12:04:50 05/21/2024 13:04:19 Heartburn 50604716 R12 Gestation period, 24 weeks 015943938 Z3A.24 [id number] Devendra White MD [facility] [address],[place] [address] 06/18/2024 11:22:40 06/18/2024 12:37:24 Uterine size for dates discrepancy 610471175 O26.843 Z3A.28 [id number] HANSA WETZEL MD [facility] [address],[place] [address] 06/18/2024 11:23:02 06/18/2024 15:02:38 Urinary tract infectious disease 45661953 N39.0 - continue abx Gravid siletz tribe leslie [id number]-jlk-ewxqi 007192906 O26.849 - EFW 11% today, repeat in 4 weeks Gestation period, 28 weeks 60236753 Z3A.28 - continue PNV RhD negative 965635416 Z 01.83 - discussed Rhogam [id number] HANSA WETZEL MD [facility] [address],[place] [address] 07/08/2024 11:31:24 07/08/2024 12:12:23 Routine care 113739844 Z34.02 - transfer of care at 20 weeks- continue vitamin Anemia of 2734 2003 O99.019 - continue Fe supplement - recheck labs at 34 weeks Gestation period, 31 weeks 10925965 Z3A.31 [id number] [facility] [address],[place] [address] 07/17/2024 12:13:26 07/17/2024 15:05:57 Small for gestational age fetus 442507012 O36.5999 mfm consult ordered Gestation period, 32 weeks 8524865 Z3A.32 [id number] Devendra White MD [facility] [address],[place] [address] 07/17/2024 12:13:36 07/17/2024 12:49:11 Small for gestational age fetus 074488793 O36.5930 Z3A.32 [id number] Devendra Wihte MD [facility] [address],[place] [address] 07/17/2024 18:42:31 07/18/2024 09:31:50 22852614 Z33.1 Small for gestational age fetus 840573778 O36.5930 Z3A.32 [id number] Devendra White MD [facility] [address],[place] [address] 08/02/2024 13:38:45 08/05/2024 10:17:18 Small for gestational age fetus 535644490 O36.5930 Z3A.34 [id number] HANSA WETZEL MD [facility] [address],[place] [address] 08/02/2024 13:39:03 08/02/2024 14:50:34 growth restriction 97383572 O36.5999 [id number] HANSA WETZEL MD [facility] [address],[place] [address] 08/02/2024 13:39:15 08/05/2024 10:16:04 growth restriction 10821417 O36.5999 - continue weekly testing and UADs- 07/2024: EFW 6%, AC 4% Gestation period, 34 weeks 58518036 Z3A.34 - continue PNV- considerin g primary elective c section [id number] HANSA WETZEL MD [facility] [address],[place] [address] 08/16/2024 13:37:38 08/16/2024 16:58:41 growth restriction 15430075 O36.5999 - continue weekly testing and UADs- 07/2024: EFW 6%, AC 4% Gestation period, 36 weeks 70284161 Z3A.36 - continue PNV- patient desires primary elective c section; will schedule for 08/27 [id number] HANSA WETZEL MD [facility] [address],[place] [address] 08/23/2024 11:06:03 08/23/2024 12:37:44 growth restriction 60763942 O36.5999 - continue weekly testing and UADs- 07/2024: EFW 6%, AC 4%- elective PCS scheduled 08/27 Gestation period, 37 weeks 10551128 Z3A.37 - continue pNV Anemia of 2734 2003 O99.019 - Fe infusions scheduled [id number] HANSA WETZEL MD [facility] [address],[facility] [address] 09/04/2024 15:05:20 09/04/2024 16:34:14 care 382675404 Z39.2 S/p c section on . Incision well-heale d without any signs of infection2 . Family planning options discussed. She plans to use Mirena IUD to prevent . She will continue to abstain from intercours e until her 6wk visit.3. RTC 4wks for post-partu m check [id number] HANSA WETZEL MD [facility] [address],[facility] [address] 10/10/2024 14:25:51 10/10/2024 15:32:12 anxiety 2185046464 2183586 O99.345 - patient reports worsening anxiety, no specific triggers- EPDS 12- patient would like to start medical management of anxiety- will start lexapro 10mg- mood check in 1 month care 77027657 8 Z39.2 S/p PLTCS 6 weeks ago here today for a visit.1. Patient recovering well2. Plans to continue formula feeding3. Interested in Mirena IUD for contracept ion at this time. Risks, benefits, and alternativ es reviewed with the patient4. Patient instructed to follow up in 1 month for med/IUD check Insertion of intrauterine contraceptive device 83965009 Z30.430 - Mirena IUD placed without issue- due for removal 10/2032- rtc 4 weeks for string check Contraception care 21393 5005 Z30.40 [id number] HANSA WETZEL MD [facility] [address] [address] 11/25/2024 11:31:20 11/28/2024 02:32:05 IUD check 281407560 Z30.431 - Mirena IUD placed 10/2024, due for removal 10/2032- no issues at this time Mycoplasma infection 186 471609 A49.3 - patient reports hx of mycoplasma infection prior to - would like retested today as well as STD swab- discussed that if no symptoms, mycoplasma can be a normal bacteria found in the vagina, may be colonizer that does not resolved anxiety 40832 89546 4632216 O99.345 - patient reports worsening anxiety with [...] Member ID Ortega Member ID Guarantor Name 11/28/2024 1 [facility] - DOS ON OR AFTER 21 (MEDICAID REPLACEMENT - HMO) Kathydesmond GarciaDonato [id number] Kathy Donato Notes Date Note Type Note [...] good. HANSA WETZEL MD [address], [place], [address], [facility] [place] 09/04/2024 16:12:06 10/10/2024 text/html S/P PLTCS [...] for contraception at this time. Naomie unger, [facility] 10/10/2024 15:34:31 11/25/2024 text/html Presents today [...] dosage. HANSA WETZEL MD [address], [place], [address], [facility] 11/28/2024 00:39:25 OBGyn Episode Ob Episode Information Episode Created Date Number of Fetuses Patient Bloodtype Patient rh Status Prepregnancy Weight lbs Domestic Partner Domestic Partner Phone Father Name Forging Press Operator Status 04/25/20 24 1 O Negative 168.8 Belgica H. Didriksen CLOSED Fetus Data First Name Last Name Admitted to NICU Weight (g) Sex Living Outcome Pediatric Complications Fetus ID Race Codes Race Delivery Type 2353.00 85 F true Full Term [id number] Primary Problems Problem Notes Problem Name Start Date End Date Resolution Snomed Code Not e Small for gestational age fetus 721978470 4%, AC 3% to [facility] - [facility] in [place] on 07/23 @ 12:45, 08/05/24 appt Blood group O Rh(D) negative 337428324 Rhogam received 06/20/24 Ilir Calculation Initial Ilir [...] Weight in lbs Pre/Post Dialysis Refused Weight 168.637878008373 BP Diastolic BP Location Tested BP Systolic BP Type 78 117 Fetus Heart Rate Present A Present Fetus Movement A Yes Comments Patient presents to [facility], [facility] Patient reports thus far uncomplicated. Denies PMH/PSH. [...] Weight in lbs Pre/Post Dialysis Refused Weight 180.791811445145 BP Diastolic BP Location Tested BP Systolic [...] Weight in lbs Pre/Post Dialysis Refused Weight 186.085541836230 BP Diastolic BP Location Tested BP Systolic [...] trend growth. Discussed GCT and labs at [facility], patient has A negative blood type. Discussed [...] Weight in lbs Pre/Post Dialysis Refused Weight 192.752443552861 BP Diastolic BP Location Tested BP Systolic [...] Type Weight in lbs Pre/Post Dialysis Refused 196.273748640779 BP Diastolic BP Location Tested BP Systolic BP Type 76 126 Fetus Heart Rate Present Fetus Movement A Yes Comments Patient states that has some pain and discharge. NST R bpp 8/8 s/d ratio wnl for ga EFW 4% AC 3%, send to [facility], discussed with pt, reviewed movement, call or [...] Type Weight in lbs Pre/Post Dialysis Refused 199.394940899097 BP Diastolic BP Location Tested BP Systolic BP Type 77 L arm 124 sitting Fetus Heart Rate Present A 135 Fetus Movement A Yes Comments Doing well, good movem ent. Discussed contraction precautions. Most recent growth US with [facility] with EFW 6%, AC 4%. BPP 1010, normal UADs. Considering primary elective c section. Risks reviewed. Discussed delivery at 38 weeks (08/27). RTC 2 weeks Flowsheet Date 08/16/2024 Billy Score Blood Edema Fundus Height Fundus Units Glucose Ketones Leukocytes Nitrite Labor Signs Protein Cervic Dilation Cervic Effacement Cervic Station neg none none trace Type Weight in lbs Pre/Post Dialysis Refused Weight 205.837746132225 BP Diastolic BP Location Tested BP Systolic BP Type 84 L arm 129 sitting Fetus Heart Rate Present A 140 Fetus Movement A Yes Comments Good movement. No cram ping or bleeding. Was at [facility] for elevated BP at home, all normal [...] Weight in lbs Pre/Post Dialysis Refused Weight 209.496525117352 BP Diastolic BP Location Tested BP Systolic [...]
--- OUTSIDE RECORDS SUMMARY | 2025-04-14 21:47 | XMS_ITS | Clinical Summary ---
Author Organization [facility] Address [address] [place] [address] Phone Care Team Providers Care Cigar Sorter Name Role Phone Unavailable Primary Care Provider Unavailabl e Medications No known medications Active Problems No known active problems Encounters Date Type Department Care Team Description 03/25/2025 External Device Data [facility] ABSTRACTION Provider, Abstract 02/27/2025 External Device Data [facility] ABSTRACTION Provider, Abstract 02/27/2025 External Device Data [facility] ABSTRACTION Provider, Abstract 02/26/2025 External Device Data [facility] ABSTRACTION Provider, Abstract 02/25/2025 External Device Data [facility] ABSTRACTION Provider, Abstract 01/21/2025 External Device Data [facility] ABSTRACTION Provider, Abstract [...] 1:47 PM CDT Height 149.9 cm (4' 11) 07/23/2024 1:47 PM CDT Body Mass Index 39.59 07/23/2024 1:47 PM CDT Plan of Treatment Health Maintenance Due Date Last Done Comments CHLAMYDIA SCREENING (ANNUAL) 11-24 YEARS 2016 HPV VACCINES (1 - 3-dose series) 2020 DTAP/TDAP/TD VACCINES (1 - Tdap) 2024 HEPATITIS B VACCINES (1 of 3 - 19+ 3-dose series) 05/11 INFLUENZA VACCINE (#1) 2025 Insurance [employer]
[2025-04-14] MEDS: SILVER SULFADIAZINE 1% CR 50 GM JAR (*BKC) 1 APPLIC TOPICAL (21:58)
[2025-04-14] MEDS: KETOROLAC (*BKC) 60 MG/2 ML VIAL IM (21:58)
--- NOTE | 2025-04-14 22:09 | ED.BURNSMOKE ---
HPI - Burn/Smoke Inhalation General Chief complaint: Burn/Smoke Inhalation Stated complaint: burn Time Seen by Provider: 04/14/25 21:50 Source: patient and family Mode of arrival: ambulatory Limitations: no limitations History of Present Illness HPI Narrative: this is a 19-year-old female who presents with some sunburn with blisters to the right shoulder area after she was in the sun patient states that she was wearing sunscreen about having redness pain and blisters of the right shoulder area Complaint: burn Onset (ago): day(s) Severity: moderate Severity scale (1-10): 6 Related Data Home Medications ?Medication ?Instructions ?Recorded ?Confirmed ?Last Taken ?Type famotidine 20 mg tablet 20 mg PO BID 08/12/24 08/27/24 08/26/24 19:30 History ferrous sulfate 325 mg (65 mg 325 mg PO DAILY 08/12/24 08/26/24 08/15/24 History iron) tablet vits no.126-ferrous fum 1 tablet PO DAILY 08/12/24 08/26/24 08/16/24 History 28 mg iron-folic acid 800 mcg tablet (Classic ) riboflavin (vitamin B2) 400 mg 400 mg PO DAILY 08/12/24 08/27/24 08/26/24 19:30 History tablet pantoprazole 40 mg tablet,delayed 40 mg PO BID 08/16/24 08/27/24 08/26/24 19:30 History release Allergies Allergy/AdvReac Type Severity Reaction Status Date / Time Sulfa (Sulfonamide Allergy Unknown Nausea and Verified 12/03/24 16:25 Antibiotics) Vomiting clavulanic acid (From AdvReac Mild Nausea and Verified 12/03/24 16:25 Augmentin) Vomiting Review of Systems Review of Systems: All systems reviewed & are unremarkable except as noted in HPI and below PMFSH Past Medical History Medical History IUP (intrauterine ), incidental Morbid obesity Urinary tract infection Kidney infection Asthma Family History Family History Other Unknown family medical history Social History Social History Smoking status: Never smoker Alcohol intake: never Substance use: never Living arrangements: with family Gender identity (if verbalized by the patient): Female Spiritual care concerns: No Exam Const: General: healthy appearing and no acute distress Nutritional Appearance: well nourished Orientation/consciousness: patient oriented x3 Limitations: no limitations Neck: Neck: normal visual inspection, no lymphadenopathy and no meningeal signs Chest: Chest palpation & inspection: normal inspection of the chest Resp: Effort & Inspection: normal respiratory effort Auscultation: clear to auscultation bilaterally Cardio: Rate: regular rate Rhythm: regular rhythm GI: Auscultation: normal bowel sounds Skin: Other: second-degree cuellar her right shoulder with blisters and redness Extrem: General: normal to inspection and no clubbing, cyanosis or edema Course Course Emergency Course: patient received 60mg IM Toradol for pain relief and Silvadene applied to sunburn with blisters on right shoulder area. Vital Signs Vital signs: Vital Signs Temperature 37.3 C 04/14/25 21:46 Pulse Rate 119 H 04/14/25 21:46 Respiratory Rate 18 04/14/25 21:46 Blood Pressure 140/71 04/14/25 21:46 Pulse Oximetry 97 04/14/25 21:46 Oxygen Delivery Room Air 04/14/25 21:46 Temperature 37.3 C 04/14/25 21:46 Pulse Rate 119 H 04/14/25 21:46 Respiratory Rate 18 04/14/25 21:46 Blood Pressure 140/71 04/14/25 21:46 Pulse Oximetry 97 04/14/25 21:46 Oxygen Delivery Room Air 04/14/25 21:46 Critical Care Time Critical Care Time Critical Care Time: No Discharge Plan Discharge Clinical Impression: Sunburn Patient Disposition: Home Condition: Stable Instructions: Antibiotic Form, Sunburn (ED) Additional Instructions: Advised use medication as prescribed and follow with primary care physician within next 3 to 5 days for further evaluation treatment. Patient Language: Trinidadian Prescriptions: New silver sulfadiazine [Silvadene] 1 % cream 1 applic topical BID 7 Days Qty: 50 0RF Rx Instructions: apply a 1.5 mm thickness naproxen 500 mg tablet 500 mg PO BID PRN (Reason: pain) Qty: 14 0RF No Action pantoprazole 40 mg Tablet,Delayed Release (Dr/Ec) 40 mg PO BID famotidine 20 mg Tablet 20 mg PO BID ferrous sulfate 325 mg (65 mg iron) Tablet 325 mg PO DAILY Classic 28 mg iron- 800 mcg Tablet 1 tablet PO DAILY riboflavin (vitamin B2) 400 mg Tablet 400 mg PO DAILY oxycodone-acetaminophen 5-325 mg tablet 1 tablet PO Q4H PRN (Reason: pain) Qty: 25 0RF Follow-up/Referrals: Miguelito Patel MD [Primary Care Provider] - Time of Disposition: 22:13
--- OUTSIDE RECORDS SUMMARY | 2025-04-14 22:14 | XMS_ITS | Clinical Summary ---
Author Organization [facility] Address [address] [place] [address] Phone Care Team Providers Care Commercial Lines Underwriter Name Role Phone Unavailable Primary Care Provider [...]
--- OUTSIDE RECORDS SUMMARY | 2025-04-14 22:14 | XMS_ITS | Clinical Summary ---
Author Organization [facility] Address [address] [place] [address] Phone Care Team Providers Care Slubber Operator Name Role Phone Lashae Mullins MD Primary Care Provider [phone] Allergies Active Allergy Reactions Criticality Noted Date [...] Comments Blood Pressure 120/87 10/28/2023 8:43 PM PMO PROJECT MANAGER Pulse 88 10/28/2023 8:43 PM PMO PROJECT MANAGER Temperature 36.8 C (98.2 F) 10/28/2023 6:40 PM PMO PROJECT MANAGER Respiratory Rate 18 10/28/2023 8:43 PM PMO PROJECT MANAGER Oxygen Saturation 99% 10/28/2023 8:43 PM PMO PROJECT MANAGER Inhaled Oxygen Concentration - - Weight 67.9 kg (149 lb 11.1 oz) 10/28/2023 6:40 PM PMO PROJECT MANAGER Height 149.9 cm (4' 11) 10/28/2023 6:40 PM PMO PROJECT MANAGER Body Mass Index 30.23 10/28/2023 6:40 PM PMO PROJECT MANAGER Body Mass Index Percentile 94.65% 10/28/2023 6:4 0 PM PMO PROJECT MANAGER Growth Chart: [facility] (Girls, 2- 20 Years) Plan of Treatment [...] to complete this topic Insurance Care Teams Slubber Operator Relationship Specialty Start Date End Date Lashae Mullins MD [address] [place] [address] PCP - General Pediatrics 03/20/17
[2025-04-14 22:47] VITALS: BP 128/79; PULSE 75; RESP 18; O2SAT 99
== END 2025-04-14 22:47 | disposition home or self-care (01) ==
LOC: CHSED 22:12
PROVIDERS: Emergency Provider Emergency Medicine; PCP Family Medicine
DX: L55.1 Sunburn of second degree (principal)
CPT/HCPCS: 16000; 96372; 99283; A9270; J1885

== ENCOUNTER 2025-10-03 09:33 | Emergency (ER) | payer OTHER, SELFPAY ==
--- NOTE | ~2025-10-03 | XR_ITS ---
Examination: XR ankle RT min 3V Clinical History: fall/twist injury Comparison: None Technique: 4 views right ankle Findings/impression: 1. No fracture or dislocation right ankle. 2. Soft tissue swelling laterally. Reviewed, dictated and finalized at location R. VIOUR SUPPORT TEACHER
--- OUTSIDE RECORDS SUMMARY | 2025-10-03 09:40 | XMS_ITS | Continuity of Care Document ---
Author Organization [facility] [place] Address [address] [place] [place] [address] Care Team Providers Care High School Science Tutor Name Role Phone FERMÍN CORNEJO Primary Care Provider Assessment No assessment recorded. Plan of Treatment Reminders Order Date Submit Date Provider Last Modified By Organization Details Last Modified Time Details Appointments None record ed. Lab None record ed. Referral None record ed. Procedures None record ed. Surgeries None record ed. Imaging None record ed. Medication Orders None record ed. Patient TargetsNo targets recorded. Patient InstructionsNo instructions recorded. Reason for Referral None Reported. Problems Name Problem SNOMED Code Status Onset Date Resolution Date Notes Provider Name and Address Organization Details Recorded Time Small for gestatio nal age fetus 039536654 Completed 4%, AC 3% to [facility] in [facility] on 07/23 @ 12:45, 08/05/24 appt Jeffery Ybarra [facility] 4 11:10:08 Blood group O Rh(D) negative 518378407 Completed Rhogam received 06/20/24 Marleny unger [facility] 4 11:00:12 Pregnanc y 39757600 Completed 202308/29/2024 Jeffery unger [facility] 4 16:59:28 Problem Notes None recorded. Procedures Surgical History Date Name Laterality Status Provider Name and Address Organization Details Recorded Time 5 IUD Removal completed HANSA WETZEL MD [address], [place], [address], , P[facility] 09/12/2025 13:16:34 5 IUD Insertion completed HANSA WETZEL MD [address], [place], [address], , P[facility] 10/10/2024 15:26:25 4 section completed Hope Riley [facility] 10/03/2024 13:51:39 Imaging Results None recorded. Procedure Notes None recorded. Medical Equipment None Reported. Allergies Allergen ID Allergen Name Allergen Category Reaction Reaction Severity Criticality Documentation Date Start Date Code Code System Note Provider Name and Address Organization Details Recorded Time 81383 Augmentin medicatio n vomiting Not available Not available 04/23/2024 68142 2 [facility] 15:24:49 Medications Name Sig Start Date Stop Date Status Note LastModified by Organization Details LastModified Time Mirena 21 mcg/24 hr (up to 8 years) 52 mg intrauterin e device Take 1 device by intrauter ine route. 2024 active Not Available Not Available Not Avai lable silver sulfadiazin e 1 % topical cream 1 APPLIC TOPICALLY TWICE A DAY FOR 7 DAYS APPLY A 1.5 MM THICKNESS 09/09 completed Not Available Not Available Not Available fluconazole 150 mg tablet TAKE 1 TABLET [...] Not Available Not Available No t Available naproxen 500 mg tablet TAKE 1 TABLET BY MOUTH TWICE A DAY NEEDED FOR PAIN active Not Available Not Available No t [...] and Address Organization Details Last Updated DateTime 09/12/2025 149.86 cm 98 % 41.2 kg/m2 14049.8 4 g 111/71 mm[Hg] ARCHIE RACHAEL [facility] 12:42:38 Social History Question Answer Notes LastModified by Organizat ion Details LastModified Time Tobacco Smoking Status Unknown If Ever Smoked Hope unger [facility] 07/17/2024 13:11:37 How Many Years [...] Or The Highest Degree You Have Received? [id number] Information not available 05/21/2024 Are There Any [...] Have Difficulty Walking Or Climbing Stairs? No [email or web address] Information not available 07/08/2024 Sex: Unknown Functional Status Question Answer Note LastModified by Organizat ion Details LastModified Time Do you use any illicit or recreational drugs? No Information not available 05/21/2024 What is your level of alcohol consumption? None Information not available 05/21/2024 Are you able to walk independently without assistance or assistive devices? YESWOREST Information not available 05/21/2024 Are you able to care for yourself independently? Yes Information not available 07/08/2024 Do you have difficulty dressing, bathing, grooming, or toileting? No [email or web address] Information not available 07/08/2024 What is your exercise level? Occasional Information not available 05/21/2024 Mental Status Question Answer Note LastModified by Organization D etails LastModified Time Do you feel stressed (tense, restless, nervous, or anxious, or unable to sleep at night)? [id number] Information not available 05/21/2024 Family History Relationship [...] Diagnosis SNOMED-CT Code Diagnosis ICD10 Code Diagnosis IMO Codes Diagnosis Note [id number] HANSA WETZEL MD [place] [address] [address] 09/12/2025 11:45:51 09/12/2025 13:33:18 Removal of intrauterine contraceptive device [id number] Z30.054 [id number] 1. IUD removed on 09/12 without difficulty 2. Patient is planning ; she has been reminded to take vitamin. Discussed ideal interpregn juma interval of 18 months due to past c section. Health Concerns Section Related Observation LastModified by Organization Detai ls LastModified Time None Recorded Concern Status LastModified by Organization Details LastModified Time None Recorded Payers Encounter Date Sequence Insurance Name Policy Number Policy Ortega Covered Member ID Ortega Member ID Guarantor Name 09/12/2025 1 [facility] (MEDICAID HMO) Kathy Donato [id number] Kathy Donato Notes Date Note Type Note Provider Name and Address Organization Details Recorded Time 09/12/2025 text/html ROS as noted in the HPI Patient presents for IUD removal. She is interested in starting to try to conceive. HANSA WETZEL MD [address], [place], [address], [facility] 09/12/2025 13:29:45 OBGyn Episode No OBEpisode recorded.
--- OUTSIDE RECORDS SUMMARY | 2025-10-03 09:40 | XMS_ITS | Data Portability ---
Author Organization [facility] Address [address] [place] [address] Care Team Providers Care Environmental Service Aide Name Role Phone FERMÍN CORNEJO Primary Care Provider [phone] Assessment No assessment recorded. Plan of Treatment Reminders Order Date Submit Date Provider Last Modified By Organization Details Last Modified Time Details Appointments None recorded. Lab None recorded. Referral None recorded. Procedures None recorded. Surgeries None recorded. Imaging None recorded. Medication Orders Lexapro 20 mg tablet 2024 025 JENNIE [id number], [address] [place], [address], 5 00:39:05 Mirena 21 mcg/24 hr (up to 8 years) 52 mg intrauterin e device 2024 025 [email or web address] Not available 15:33:57 Patient TargetsNo targets recorded. Patient InstructionsNo instructions recorded. Reason for Referral None Reported. Results Created Date Observation Date Name Description Value Unit Range Abnormal Flag Note LastModifiedBy Organization Detail LastModifiedTime 08/16/20 24 08/16/2024 CULTU RE: GROUP B [...] t Abnor mal: No Resul ting Lab: [facility] [address] [facility] [address] Tel: CULTU RE ----- ----- ----- --- No Group B strep isola delia at 2 days (mary ctive broth enhan cemen t) Not Available [facility] (Lab) [address] [place], [address], 08/19/2024 15:07:43 11/25/19 25 11/25/2024 WOMEN 'S HEALT H SWAB PLUS, CAROL bacterial vaginosis (bv), tma Positi ve negati ve abnormal Not Available [facility] (Lab) [address] [place], [address], 12/02/2024 00:13:31 11/25/19 25 11/25/2024 WOMEN 'S HEALT H SWAB PLUS, CAROL irwin species, tma Negati ve negati ve Not Available [facility] (Lab) [address] [place], [address], 12/02/2024 00:13:31 11/25/19 25 11/25/2024 WOMEN 'S HEALT H SWAB PLUS, CAROL irwin glabrata, tma Negati ve negati ve Not Available [facility] (Lab) [address] [place], [address], 12/02/2024 00:13:31 11/25/1911/25/2024 WOMEN 'S HEALT H SWAB PLUS, CAROL trichomonas vaginalis, tma Negati ve negati ve Not Available [facility] (Lab) [address] [place], [address], 12/02/2024 00:13:31 11/25/19 25 11/25/2024 WOMEN 'S HEALT H SWAB PLUS, CAROL chlamydia trachomatis, PCR Negati ve negati ve Not Available [facility] (Lab) [address] [place], [address], 12/02/2024 00:13:31 11/25/19 25 11/25/2024 WOMEN 'S [...] ded in this panel . Not Available [facility] (Lab) [address] [place], [address], 12/02/2024 00:13:31 11/25/19 25 11/25/2024 UROGE NITAL MYCOP LASMA /UREA PLASM A PANEL RT-PC R, ONESW AB mycoplasma genitalium by RT-PCR Negati ve Swab- 1 Cerv End Not Available [facility] (Lab) [address] [place], [address], 12/02/2024 00:13:32 11/25/19 25 11/25/2024 UROGE NITAL MYCOP LASMA /UREA PLASM A PANEL RT-PC R, ONESW AB mycoplasma hominis by RT-PCR Negati ve Swab- 1 Cerv End Not Available [facility] (Lab) [address] [place], [address], 12/02/2024 00:13:32 11/25/19 25 11/25/2024 UROGE NITAL MYCOP LASMA /UREA PLASM A PANEL RT-PC R, ONESW AB ureaplasma urealyticum by RT-PCR Negati ve Swab- 1 Cerv End Not Available [facility] (Lab) [address], [place], [address], 12/02/2024 00:13:32 07/23/2007/23/2024 US, obste tric No observ ation record ed. [email or web address] [facility] [address], [place], [address], 07/24/2024 09:50:10 07/25/2007/25/2024 imagi ng/di agnos tic resul t No observ ation record ed. [facility] [address], [place], [address], 07/26/2024 12:02:39 07/30/2007/29/2024 imagi ng/di agnos tic resul t No observ ation record ed. [facility] [address], [place], [address], 07/30/2024 14:14:19 07/30/2007/29/2024 imagi ng/di agnos tic resul t No observ ation record ed. [facility] [address], [place], [address], 07/30/2024 14:14:36 08/01/2008/01/2024 US, obste tric, limit ed No observ ation record ed. [email or web address] [facility] [address], [place], [address], 08/02/2024 11:09:57 08/02/2008/02/2024 US, obste tric, bioph ysica l profi le No observ ation record ed. [email or web address] Ellie [address], [place], [address], 08/03/2024 17:55:49 08/02/2008/02/2024 non-s tress test No observ ation record ed. [address], [place], [address], 08/02/2024 14:50:48 08/02/2008/02/2024 US, obste tric, bioph ysica l profi le + non-s tress test No observ ation record ed. [facility] [address], [place], [address], 08/02/2024 17:39:47 08/02/2008/02/2024 US, doppl er, umbil ical arter y veloc imetr y No observ ation record ed. [facility] [address], [place], [address], 08/02/2024 17:39:59 08/05/2008/05/2024 US, obste tric, follo w-up No observ ation record ed. [address] [facility] [address], [place], [address], 08/05/2024 15:42:02 08/05/2008/05/2024 US, obste tric, follo w-up No observ ation record ed. [email or web address] [facility] [place] [address] [place], [address], 08/05/2024 23:41:57 08/05/2008/05/2024 US, obste tric, follo w-up No observ ation record ed. [address] [facility], [place], [address], 08/05/2024 15:40:58 08/08/2008/08/2024 imagi ng/di agnos tic resul t No observ ation record ed. [facility] [address], [place], [address], 08/12/2024 14:32:44 08/12/20 24 08/12/2024 US, obste tric, follo w-up No observ ation record ed. [facility] [address], [place], [address], 08/13/2024 21:48:41 08/15/2008/15/2024 imagi ng/di agnos tic resul t No observ ation record ed. [facility] [address], [place], [address], 08/15/2024 22:27:24 08/19/20 24 08/19/2024 imagi ng/di agnos tic resul t No observ ation record ed. [facility] [address], [place], [address], 08/20/2024 00:22:03 08/22/20 24 08/22/2024 imagi ng/di agnos tic resul t No observ ation record ed. [facility] [address], [place], [address], 08/23/2024 11:27:55 08/26/20 24 08/26/2024 imagi ng/di agnos tic resul t No observ ation record ed. [facility] [address] , [place], [address], 08/27/2024 01:05:14 08/26/20 24 08/26/2024 imagi ng/di agnos tic resul t No observ ation record ed. [facility] [address], [place], [address], 08/27/2024 11:19:35 08/27/20 24 08/26/2024 US, obste tric, follo w-up No observ ation record ed. [address] [facility] [address], [place], [address], 08/28/2024 10:34:43 08/27/20 24 08/26/2024 US, obste tric, follo w-up No observ ation record ed. [address] [facility] [address], [place], [address], 08/28/2024 10:34:59 08/27/20 24 08/26/2024 US, obste tric, follo w-up No observ ation record ed. [address] [facility] [address], [place], [address], 08/28/2024 11:25:30 Result Notes None recorded. Problems Name Problem SNOMED Code Status Onset Date Resolution Date Notes Provider Name and Address Organization Details Recorded Time Small for gestatio nal age fetus 823183980 Completed 4%, AC 3% to [facility] in [facility] on 07/23 @ 12:45, 08/05/24 appt Jeffery unger [facility] 4 11:10:08 Blood group O Rh(D) negative 552712495 Completed Rhogam received 06/20/24 Marleny unger [facility] 4 11:00:12 Pregnanc y 45708942 Completed 202308/29/2024 Jeffery unger [facility] 4 16:59:28 Problem Notes None recorded. Procedures Surgical History Date Name Laterality Status Provider Name and Address Organization Details Recorded Time 5 IUD Removal completed HANSA WETZEL MD [address], [place], [address], [facility] 09/12/2025 13:16:34 5 IUD Insertion completed HANSA WETZEL MD [address], [place], [address], [facility] 10/10/2024 15:26:25 4 section completed Hope Riley [facility] 10/03/2024 13:51:39 Imaging Results None recorded. Procedure Notes None recorded. Medical Equipment None Reported. Allergies Allergen ID Allergen Name Allergen Category Reaction Reaction Severity Criticality Documentation Date Start Date Code Code System Note Provider Name and Address Organization Details Recorded Time 65485 Augmentin medicatio n vomiting Not available Not available 04/23/2024 69209 2 RxNorm [facility] 15:24:49 Medications Name Sig Start [...] 10/10/2024 149.86 cm 98.63 % 39.6 kg/m2 74857.1 g 108/71 mm[Hg] [facility] 5 14:35:52 Date Recorded Body height Body mass index (BMI) [Percentile] Per age and sex Body mass index (BMI) Body weight Systolic And Diastolic Provider Name and Address Organization Details Last Updated DateTime 11/25/2024 149.86 cm 98.97 % 41 kg/m2 55894.2 5 g 130/81 mm[Hg] [facility] 5 11:39:19 Date Recorded Body height Body mass index (BMI) [Percentile] Per age and sex Body mass index (BMI) Body weight Systolic And Diastolic Provider Name and Address Organization Details Last Updated DateTime 08/23/2024 149.86 cm 99.28 % 42.2 kg/m2 52232.8 1 g 121/77 mm[Hg] [facility] 4 12:03:52 Date Recorded Body height Body mass index (BMI) [Percentile] Per age and sex Body mass index (BMI) Body weight Systolic And Diastolic Provider Name and Address Organization Details Last Updated DateTime 09/04/2024 149.86 cm 98.38 % 38.6 kg/m2 76213.1 4 g 117/81 mm[Hg] [facility] 4 15:30:04 Date Recorded Body height Body mass index (BMI) [Percentile] Per age and sex Body mass index (BMI) Body weight Systolic And Diastolic Provider Name and Address Organization Details Last Updated DateTime 09/12/2025 149.86 cm 98 % 41.2 kg/m2 74897.8 4 g 111/71 mm[Hg] ARCHIE CANO [facility] 5 12:42:38 Social History Question Answer Notes LastModified by Organizat ion Details LastModified Time Tobacco Smoking Status Unknown If Ever Smoked [facility] 07/17/2024 13:11:37 How Many Years Have [...] Or The Highest Degree You Have Received? [id number] Information not available 05/21/2024 Are There Any [...] Have Difficulty Walking Or Climbing Stairs? No [email or web address] Information not available 07/08/2024 Sex: Unknown Functional [...] able to care for yourself independently? Yes [email or web address] Information not available 07/08/2024 Do you have difficulty dressing, bathing, grooming, or toileting? No Information not available 07/08/2024 What is your exercise level? Occasional Information not available 05/21/2024 Mental Status Question Answer Note LastModified by Organization D etails LastModified Time Do you feel stressed (tense, restless, nervous, or anxious, or unable to sleep at night)? [id number] Information not available 05/21/2024 Family History Relationship [...] ICD10 Code Diagnosis IMO Codes Diagnosis Note MD [facility] [address] [address] 04/23/2024 13:42:16 04/23/2024 15:50:26 screening for malformation 905623998 Z36.3 Z3A.20 MD [facility] [address],[place] [address] 04/23/2024 13:59:45 05/06/2024 16:06:08 Routine care 622784599 Z34.02 - transfer of care at 20 weeks- continue vitamin [id number] Devendra White MD [place] [address],[place] [address] 05/21/2024 11:14:47 05/21/2024 13:13:13 screening 777745419 Z36.2 Z3A.24 [id number] HANSA WETZEL MD [place] [address],[place] [address] 05/21/2024 12:04:50 05/21/2024 13:04:19 Heartburn 48417357 R12 Gestation period, 24 weeks 098096204 Z3A.24 [id number] Devendra White MD [facility] [address],[place] [address] 06/18/2024 11:22:40 06/18/2024 12:37:24 Uterine size for dates discrepancy 576023436 O26.843 Z3A.28 [id number] HANSA WETZEL MD [place] [address],[place] [address] 06/18/2024 11:23:02 06/18/2024 15:02:38 Urinary tract infectious disease 74039184 N39.0 - continue abx Gravid nik leslie gjjmd-qnc-ptgen 704714812 O26.849 - EFW 11% today, repeat in 4 weeks Gestation period, 28 weeks 59873016 Z3A.28 - continue PNV RhD negative 120843807 Z 01.83 - discussed Rhogam [id number] HANSA WETZEL MD [place] [address],[place] [address] 07/08/2024 11:31:24 07/08/2024 12:12:23 Routine care 975493360 Z34.02 - transfer of care at 20 weeks- continue vitamin Anemia of 2734 2004 O99.019 - continue Fe supplement - recheck labs at 34 weeks Gestation period, 31 weeks 45725527 Z3A.31 [id number] Lola Lam, [facility] [address],[place] [address] 07/17/2024 12:13:26 07/17/2024 15:05:57 Small for gestational age fetus 618960657 O36.5999 m consult ordered Gestation period, 32 weeks 6884817 Z3A.32 473972 Devendra White MD [place] [address],[place] [address] 07/17/2024 12:13:36 07/17/2024 12:49:11 Small for gestational age fetus 497167661 O36.5930 Z3A.32 420003 Devendra White MD [place] [address],[place] [address] 07/17/2024 18:42:31 07/18/2024 09:31:50 77540654 Z33.1 Small for gestational age fetus 780402606 O36.5930 Z3A.32 156786 Devendra White MD [place] [address],[place] [address] 08/02/2024 13:38:45 08/05/2024 10:17:18 Small for gestational age fetus 709897641 O36.5930 Z3A.34 [id number] HANSA WETZEL MD [place] [address],[place] [address] 08/02/2024 13:39:03 08/02/2024 14:50:34 growth restriction 83823661 O36.5999 [id number] HANSA WETZEL MD [place] [address],[place] [address] 08/02/2024 13:39:15 08/05/2024 10:16:04 growth restriction 74112649 O36.5999 - continue weekly testing and UADs- 07/2024: EFW 6%, AC 4% Gestation period, 34 weeks 82738580 Z3A.34 - continue PNV- considerin g primary elective c section [id number] HANSA WETZEL MD [place] [address],[place] [address] 08/16/2024 13:37:38 08/16/2024 16:58:41 growth restriction 64514263 O36.5999 - continue weekly testing and UADs- 07/2024: EFW 6%, AC 4% Gestation period, 36 weeks 43396155 Z3A.36 - continue PNV- patient desires primary elective c section; will schedule for 08/27745 HANSA WETZEL MD [place] [address],[place] [address] 08/23/2024 11:06:03 08/23/2024 12:37:44 growth restriction 75035314 O36.5999 - continue weekly testing and UADs- 07/2024: EFW 6%, AC 4%- elective PCS scheduled 08/27 Gestation period, 37 weeks 12731346 Z3A.37 - continue pNV Anemia of 2734 2003 O99.019 - Fe infusions scheduled [id number] HANSA WETZEL MD [place] [address],[place] [address] 09/04/2024 15:05:20 09/04/2024 16:34:14 care 118544420 Z39.2 S/p c section on . Incision well-heale d without any signs of infection2 . Family planning options discussed. She plans to use Mirena IUD to prevent . She will continue to abstain from intercours e until her 6wk visit.3. RTC 4wks for post-partu m check [id number] HANSA WETZEL MD [place] [address],[place] [address] 10/10/2024 14:25:51 10/10/2024 15:32:12 anxiety 7919116111 1172753 O99.345 - patient reports worsening anxiety, no specific triggers- EPDS 12- patient would like to start medical management of anxiety- will start lexapro 10mg- mood check in 1 month care 57676142 8 Z39.2 S/p PLTCS 6 weeks ago here today for a visit.1. Patient recovering well2. Plans to continue formula feeding3. Interested in Mirena IUD for contracept ion at this time. Risks, benefits, and alternativ es reviewed with the patient4. Patient instructed to follow up in 1 month for med/IUD check Insertion of intrauterine contraceptive device 57556255 Z30.430 - Mirena IUD placed without issue- due for removal 10/2032- rtc 4 weeks for string check Contraception care 33721 5005 Z30.40 [id number] HANSA WETZEL MD [place] [address],[facility] [place] [address] 11/25/2024 11:31:20 11/28/2024 02:32:05 IUD check 135750503 Z30.431 - Mirena IUD placed 10/2024, due for removal 10/2032- no issues at this time Mycoplasma infection 186 458998 A49.3 - patient reports hx of mycoplasma infection prior to - would like retested today as well as STD swab- discussed that if no symptoms, mycoplasma can be a normal bacteria found in the vagina, may be colonizer that does not resolved anxiety 08097 60987 1322970 O99.345 - patient reports worsening anxiety with travelling as a passenger, otherwise well controlled - increase to 20mg lexapro daily [id number] HANSA WETZEL MD [place] [address] [address] 09/12/2025 11:45:51 09/12/2025 13:33:18 Removal of intrauterine contraceptive device 8214502098 Z30.525 6404888 1. IUD removed on 09/12 without difficulty [...] Ortega Member ID Guarantor Name 09/12/2025 1 [facility] - DOS ON OR AFTER 21 (MEDICAID REPLACEMENT - HMO) Katyh Donato [id number] Kathy Donato 09/12/2025 1 [facility] (MEDICAID HMO) Kathy Donato [id number] Kathy Donato Notes Date Note Type Note Provider Name and Address Organization Details Recorded Time 08/23/2024 text/html Generic HPI TemplateReported by Patient HANSA WETZEL MD [address], [place], [address], [facility] 08/23/2024 12:32:09 09/04/2024 text/html s/p C/S 08/27. She presents today for her incision check. Her postop course has been unremarkable. She has minimal spotting, denies pain, fever or any other concerning symptoms. She is formula feeding and her baby is doing well. Her mood is good. HANSA WETZEL MD [address], [place], [address], [facility] 09/04/2024 16:12:06 10/10/2024 text/html S/P PLTCS on 08/27 at 38 weeks gestation. was complicated by [...] for contraception at this time. Naomie unger, [facility] 10/10/2024 15:34:31 11/25/2024 text/html ROS as noted in the HPI Presents today for IUD check. Had mirena IUD placed 1/2/25. Has had no issues since insertion. Patient [...] dosage. HANSA WETZEL MD [address], [place], [address], [facility] 11/28/2024 00:39:25 09/12/2025 text/html ROS as noted in the HPI Patient presents for IUD removal. She is interested in starting to try to conceive. HANSA WETZEL MD [address], [place], [address], [facility] 09/12/2025 13:29:45 OBGyn Episode Ob Episode Information Episode Created Date Number of Fetuses Patient Bloodtype Patient rh Status Prepregnancy Weight lbs Domestic Partner Domestic Partner Phone Father Name [employer] Status 04/25/20 24 1 O Negative 168.8 [facility] Didriksen CLOSED Fetus Data First Name Last Name Admitted to NICU Weight (g) Sex Living Outcome Pediatric Complications Fetus ID Race Codes Race Delivery Type 2353.00 85 F true Full Term [id number] Primary Problems Problem Notes Problem Name Start Date End Date Resolution Snomed Code Not e Small for gestational age fetus 759636808 4%, AC 3% to [facility] [place] on 07/23 @ 12:45, 08/05/24 appt Blood group O Rh(D) negative 377142796 Rhogam received 06/20/24 Ilir Calculation Initial Ilir [...] Weight in lbs Pre/Post Dialysis Refused Weight 168.577825220723 BP Diastolic BP Location Tested BP Systolic BP Type 78 117 Fetus Heart Rate Present A Present Fetus Movement A Yes Comments Patient presents to [facility] care, transfer from [facility]. Patient reports thus far uncomplicated. Denies [...] Weight in lbs Pre/Post Dialysis Refused Weight 180.948437147172 BP Diastolic BP Location Tested BP Systolic [...] Weight in lbs Pre/Post Dialysis Refused Weight 186.618510859688 BP Diastolic BP Location Tested BP Systolic [...] trend growth. Discussed GCT and labs at [facility], patient has A negative blood type. Discussed [...] Weight in lbs Pre/Post Dialysis Refused Weight 192.182797689406 BP Diastolic BP Location Tested BP Systolic [...] Type Weight in lbs Pre/Post Dialysis Refused 196.986010807713 BP Diastolic BP Location Tested BP Systolic [...] Type Weight in lbs Pre/Post Dialysis Refused 199.205637327541 BP Diastolic BP Location Tested BP Systolic BP Type 77 L arm 124 sitting Fetus Heart Rate Present A 135 Fetus Movement A Yes Comments Doing well, good movem ent. Discussed contraction precautions. Most recent growth US with Diana [facility] with EFW 6%, AC 4%. BPP 10/10, normal UADs. Considering primary elective c section. Risks reviewed. Discussed delivery at 38 weeks (08/27). RTC 2 weeks Flowsheet Date 08/16/2024 Billy Score Blood Edema Fundus Height Fundus Units Glucose Ketones Leukocytes Nitrite Labor Signs Protein Cervic Dilation Cervic Effacement Cervic Station neg none none trace Type Weight in lbs Pre/Post Dialysis Refused Weight 205.184989184296 BP Diastolic BP Location Tested BP Systolic BP Type 84 L arm 129 sitting Fetus Heart Rate Present A 140 Fetus Movement A Yes Comments Good movement. No cram ping or bleeding. Was at [facility] for elevated BP at home, all normal [...] Weight in lbs Pre/Post Dialysis Refused Weight 209.611010859463 BP Diastolic BP Location Tested BP Systolic [...]
--- OUTSIDE RECORDS SUMMARY | 2025-10-03 09:40 | XMS_ITS | Clinical Summary ---
Author Organization [facility] Address [address] [place] [address] Phone Care Team Providers Care Flavoring Maker Name Role Phone Lashae Mullins MD Primary Care Provider [phone] Allergies Active Allergy Reactions Criticality Noted Date [...] Comments Blood Pressure 120/87 10/28/2023 8:43 PM COMPUTER PROGRAMMER CHIEF Pulse 88 10/28/2023 8:43 PM COMPUTER PROGRAMMER CHIEF Temperature 36.8 C (98.2 F) 10/28/2023 6:40 PM COMPUTER PROGRAMMER CHIEF Respiratory Rate 18 10/28/2023 8:43 PM COMPUTER PROGRAMMER CHIEF Oxygen Saturation 99% 10/28/2023 8:43 PM COMPUTER PROGRAMMER CHIEF Inhaled Oxygen Concentration - - Weight 67.9 kg (149 lb 11.1 oz) 10/28/2023 6:40 PM COMPUTER PROGRAMMER CHIEF Height 149.9 cm (4' 11) 10/28/2023 6:40 PM COMPUTER PROGRAMMER CHIEF Body Mass Index 30.23 10/28/2023 6:40 PM COMPUTER PROGRAMMER CHIEF Plan of Treatment Health Maintenance Due Date Last Done Comments Hepatitis C Virus (HCV) Screening 2005 Influenza Immunization (#1) 2025 11/0 03/2023, 08/14/2019, 11/29/2018, Additional history exists SARS-COV-2 Immunization (2024- season) 2025 Respiratory Syncytial Virus (RSV) Immunization (Adult) (1 [...] 01/02/2006, 2005, Additional history exists Varicella Immunization Completed 03/02/2010, 2006 DTaP/Tdap/Td Immunization Discontinued 2015, 03/02/2010, 12/18/2006, Additional history exists TdaP Immunization Completed 04/21/2016 Human Papillomavirus (HPV) Immunization Completed 08/22/2017, 01/26/2017 Meningococcal Immunization (ACWY) Completed 07/08/2021, 06/27/2016 Meningococcal B Immunization Completed 01/19/2023, 07/08/2021 Rotavirus Immunization Aged Out No lo nger eligible based on patient's age to complete this topic Insurance Care Teams Flavoring Maker Relationship Specialty Start Date End Date Lashae Mullins MD PCP - General Pediatrics 03/20/17
--- OUTSIDE RECORDS SUMMARY | 2025-10-03 09:40 | XMS_ITS | Clinical Summary ---
Author Organization [facility] Address [address] [place] [phone] Phone Care Team Providers Care Administrative Office Clerk Name Role Phone Unavailable Primary Care Provider Unavailabl e Medications No known medications Active Problems No known active problems Encounters Date Type Department Care Team Description 07/29/2025 External Device Data STL ABSTRACTION Provider, Abstract [...] series) 05/11 INFLUENZA VACCINE (#1) 2025 Insurance [facility]ELD [facility] MEDICA[facility]
[2025-10-03 09:45] VITALS: BP 124/61; PULSE 84; RESP 20; TEMP 36.4; O2SAT 100
--- NOTE | 2025-10-03 09:55 | ED.LOWEXIN ---
HPI - Extremity Injury (Lower) General Chief Complaint: Extremity Injury, Lower Stated Complaint: Fall Injury/Right Ankle Time Seen by Provider: 10/03/25 09:34 Source: patient Mode of arrival: ambulatory Limitations: no limitations History of Present Illness HPI Narrative: Kathy is a 20-year-old female patient presenting to the clinic today with complaints of right ankle pain. She reports she twisted her ankle in a hole outside her home yesterday evening. Has pain and swelling to the lateral and medial ankle. Is having pain with bearing weight. Patient has taken ibuprofen for symptoms 30 minutes ago. Rates pain 06/18 Related Data Home Medications ?Medication ?Instructions ?Recorded ?Confirmed ?Last Taken ?Type escitalopram oxalate 20 mg tablet mg 10/03/25 Unknown History Allergies Allergy/AdvReac Type Severity Reaction Status Date / Time Sulfa (Sulfonamide Allergy Unknown Nausea and Verified 10/03/25 09:54 Antibiotics) Vomiting clavulanic acid (From AdvReac Mild Nausea and Verified 10/03/25 09:54 Augmentin) Vomiting Review of Systems Review of Systems: Pertinent positives per HPI. Patient denies any fever, chills, rash, headache, visual changes, dizziness, cough, runny nose, sore throat, shortness of breath, chest pain, palpitations, nausea, vomiting, diarrhea, constipation, abdominal pain, or any urinary issues. [facility] Past Medical History Medical History IUP (intrauterine ), incidental Morbid obesity Urinary tract infection Kidney infection Asthma Family History Family History Other Unknown family medical history Social History Social History Smoking status: Never smoker Alcohol intake: never Substance use: never Living arrangements: with family Gender identity (if verbalized by the patient): Female Spiritual care concerns: No Comments At the time of my signature, I reviewed and agree with the nursing past medical, surgical, social, and family history. There is no relevant family history pertinent to the patient complaint. Exam Narrative: General: Well-developed, well nourished, in no apparent distress Head: Normocephalic, atraumatic. Cardio: Regular rate and rhythm, s1 and s2 normal, no murmur appreciated. Resp: Clear to auscultation bilaterally, no rhonchi, rales, wheezing or rubs. Musculoskeletal: No deformity, swelling noted to the right lateral and medial ankle, tender to palpation over the anterior, lateral, and medial ankle, pain with range of motion but has grossly normal range of motion, muscle strength strong and equal, peripheral pulse strong, no edema, no cyanosis, normal gait and station Course Course Level of Care: Express Care Visit Vital Signs Vital signs: Vital Signs Temperature 36.4 C 10/03/25 09:45 Pulse Rate 84 10/03/25 09:45 Respiratory Rate 20 10/03/25 09:45 Blood Pressure 124/61 10/03/25 09:45 Pulse Oximetry 100 10/03/25 09:45 Oxygen Delivery Room Air 10/03/25 09:45 Temperature 36.4 C 10/03/25 09:45 Pulse Rate 84 10/03/25 09:45 Respiratory Rate 20 10/03/25 09:45 Blood Pressure 124/61 10/03/25 09:45 Pulse Oximetry 100 10/03/25 09:45 Oxygen Delivery Room Air 10/03/25 09:45 MDM MDM Narrative Medical decision making narrative: At the time of visit patient is resting comfortably on the exam table. Patient appears to be nontoxic. Complaints of right ankle pain. She reports she twisted her ankle in a hole outside her home yesterday evening. Has pain and swelling to the lateral and medial ankle. Is having pain with bearing weight. Patient has taken ibuprofen for symptoms 30 minutes ago. Rates pain 9/10 on exam patient has tenderness to palpation over the right lateral and medial ankle with swelling to the right lateral and medial ankle, is able to perform range of motion, pedal pulse palpable. X-ray of the right ankle was ordered. Diagnostics: X-ray of the right ankle was performed and is negative for any acute fracture or malalignment Plan: I suspect patient has right ankle sprain. Jacinto wrap was ordered and ice pack was ordered. Sensation circulation and motion within normal limits after application of Jacinto wrap. Supportive measures were discussed with the patient and they voiced understanding discharge instructions and agrees to treatment plan. Return precautions reviewed Differential Diagnosis Differential Diagnosis: Differential diagnostic considerations for lower extremity injury include ankle sprain/strain, acute internal derangement of knee, fracture of femur, fracture of hip, puncture wound of foot, fracture of toe, fracture of ankle, tendon rupture (achilles/patellar/quadriceps). Imaging Data Radiologist's impression: [place] [address] [place] [address] XRay Report Signed Patient: Kathy Donato : 2005 MR#: [id number] Age: 20 Acct:[id number] Loc: [facility] ADM Date: 10/03/[address]: Ordering Physician: Julius Crews APRN Date of Service: 10/03/25 Procedure(s): XR ankle RT min 3V Accession Number(s): [id number] cc: Julius Crews APRN; UNKNOWN,DOCTOR~ Examination: XR ankle RT min 3V Clinical History: fall/twist injury Comparison: None Technique: 4 views right ankle Findings/impression: 1. No fracture or dislocation right ankle. 2. Soft tissue swelling laterally. Reviewed, dictated and finalized at location R. ER MELTER Please be advised this is a medical document. It is intended for [id number] communication. It is written in medical language and may contain unfamiliar abbreviations or verbiage. Medical documents are intended to carry relevant information, facts as evident, and the clinical opinion of the practitioner at the time of the encounter. This report may have been done utilizing a voice recognition system. Attempts have been made to correct errors. However, there may be uncorrected grammatical, spelling, and recognition errors present. The file time of this note does not necessarily represent the time of service. Dictated By: Alfonso Escoto MD 10/03/25 1016 Signed By: <Electronically signed by Alfonso Escoto MD in OV> 10/03/25 1031 Discharge Plan Discharge Clinical Impression: Right ankle sprain Qualifiers: Encounter type: initial encounter Involved ligament of ankle: unspecified ligament Qualified Code(s): S93.401A - Sprain of unspecified ligament of right ankle, initial encounter Patient Disposition: Home Condition: Stable Instructions: Antibiotic Form, Ankle Sprain (ED) Additional Instructions: X-ray of the right ankle is negative for any sign of fracture or malalignment Rest, ice, elevate, and wear jacinto wrap as directed May wear ankle stirrup splint when up ambulating Tylenol/motrin for pain as discussed. Gradually bear weight No running or sports until healed. Follow up with your PCP if symptoms persist more than 1 week. Patient Language: Welsh Prescriptions: No Action escitalopram oxalate 20 mg tablet Follow-up/Referrals: UNKNOWN,DOCTOR [Primary Care Provider] Stand Alone Forms: Work/School Release IP Time of Disposition: 10:33 Quality NIHSS Nursing Documentation ED NIHSS nursing documentation: reviewed/agree
== END 2025-10-03 10:48 | disposition home or self-care (01) ==
PROVIDERS: Emergency Provider Nurse Practitioner Family
DX: S93.401A Sprain of unspecified ligament of right ankle, initial encounter (principal); X50.1XXA Overexertion from prolonged static or awkward postures, initial encounter; J45.909 Unspecified asthma, uncomplicated; E66.01 Morbid (severe) obesity due to excess calories; Z68.41 Body mass index [BMI] 40.0-44.9, adult
CPT/HCPCS: 73610; 99213; G0463